=== PATIENT | male | born 1935 | race Hispanic/Latino ===

== ENCOUNTER 2019-06-06 01:45 | Emergency (ER) | payer MEDICARE, OTHER ==
--- NOTE | 2019-06-06 07:37 | CT ---
PRELIMINARY REPORT/[facility]/EMERGENCY AFTER HOURS PROCEDURE PROCEDURE INFORMATION: Exam: CT Head Without Contrast Exam date and time: 06/06/2019 2:31 AM Clinical history: 84 years old, male; Injury or trauma; Fall; Initial encounter; Blunt trauma (contus ions or hematomas); Patient HX: PT in from lampstand. Fell out of bed, onto a matress on the floor. E MS states pressure ulser on back and PT states hurts when urnating. Has had px stroke TECHNIQUE: Imaging protocol: Computed tomography of the head without contrast. COMPARISON: No relevant prior studies available. FINDINGS: Brain: No intracranial hemorrhage. Multifocal encephalomalacia/gliosis. Volume loss and chronic small vessel ischemic change. No brain edema. Ventricles: Normal. No ventriculomegaly. Bones/joints: Unremarkable. No acute fracture. Sinuses: Visualized sinuses are unremarkable. No fluid levels. Mastoid air cells: Visualized mastoid air cells are well aerated. Soft tissues: Unremarkable. IMPRESSION: No intracranial hemorrhage. Thank you for allowing us to participate in the care of your patient. Dictated and Authenticated by: Steven Delaney MD 06/06/2019 2:39 AM Central Time ([place] & [place]) FINAL REPORT I agree with the preliminary report provided. CODE QA POS:
--- NOTE | 2019-06-06 09:32 | RAD ---
AP VIEW PELVIS: INDICATIONS: Fall from standing with pain while urinating. COMPARISON: None. IMPRESSION: There is a mild amount of retained stool within the rectum and colon. There is diffuse osteopenia. No displaced pelvic fracture is evident. There is moderate degenerative change of both hips. There is e nthesopathic change of the ischial tuberosity and anterior pelvis. There is prominent degenerative ch nikolai of the lower lumbar spine. POS: BH
== END 2019-06-06 03:50 | disposition home or self-care (01) ==
LOC: ERS 01:45
DX: Z04.3 Encounter for examination and observation following other accident (principal); E11.621 Type 2 diabetes mellitus with foot ulcer; L89.612 Pressure ulcer of right heel, stage 2; I25.10 Atherosclerotic heart disease of native coronary artery without angina pectoris; I48.91 Unspecified atrial fibrillation; J44.9 Chronic obstructive pulmonary disease, unspecified; E11.9 Type 2 diabetes mellitus without complications; I49.9 Cardiac arrhythmia, unspecified; E78.5 Hyperlipidemia, unspecified; K21.9 Gastro-esophageal reflux disease without esophagitis; I10 Essential (primary) hypertension; F03.90 Unspecified dementia, unspecified severity, without behavioral disturbance, psychotic disturbance, mood disturbance, and anxiety; N40.0 Benign prostatic hyperplasia without lower urinary tract symptoms; Z86.73 Personal history of transient ischemic attack (TIA), and cerebral infarction without residual deficits; F32.9 Major depressive disorder, single episode, unspecified; F41.9 Anxiety disorder, unspecified; W06.XXXA Fall from bed, initial encounter
CPT/HCPCS: 70450; 72170

== ENCOUNTER 2019-09-25 21:09 | Emergency (ER) | payer MEDICARE, MEDICAID ==
[2019-09-25] MEDS ORDERED: Cefepime 2 GM VIAL ONE (21:52)
[2019-09-25] MEDS ORDERED: Sodium Chloride 0.9% 100 ML ONE (21:52)
--- NOTE | 2019-09-25 21:59 | RAD ---
RADIOGRAPH CHEST 1 VIEW: DATE: 09/25/2019 HISTORY: 84-year-old male with productive cough FINDINGS: The thoracic aorta is tortuous and ectatic. There is no evidence of airspace density, pulmonary edema , or pneumothorax. The lateral costophrenic angles are not effaced. There are diffuse chronic interstitial pulmonary densities. Left subclavian dual lead pacemaker. No interval change since 2016. IMPRESSION: 1) No acute pulmonary findings. 2) ectasia of thoracic aorta. 3) chronic interstitial lung disease. 4) pacemaker.
[2019-09-25 22:00] LABS: #Basophils 0.1 thou/uL (0.0-0.2); #Eosinphils 0.2 thou/uL (0.0-0.7); #Lymphocytes 1.9 thou/uL (1.20-3.40); #Neutrophils 9.4 thou/uL (1.40-6.50); %Basophils 0.6 % (0.0-1.0); %Eosinophils 1.7 % (0.0-10.0); %Lymphocytes 15.2 % (21.0-51.0); %Monocytes 8.1 % (0.0-10.0); %Neutrophils 74.5 % (42.0-75.0); Hemoglobin 12.3 g/dL (14.0-18.0); Mean Corpuscular Hemoglobin 30.2 pg (27.0-31.0); Mean Corpuscular Volume 91.5 fL (78.0-98.0); Mean Platelet Volume 7.2 fL (7.4-10.4); Platelet Count 310 thou/uL (130-400); RBC Distribution Width 13.3 % (11.5-14.5); Red Blood Cell (RBC) Count 4.07 mill/uL (4.70-6.10); White Blood Cell (WBC) Count 12.6 thou/uL (4.8-10.8)
[2019-09-25 22:23] LABS: ALT (SGPT) Less than 7 U/L (8-55); AST (SGOT) 9 U/L (5-34); Albumin 3.2 g/dL (3.4-4.8); Alkaline Phosphatase 83 U/L (40-110); Anion Gap 17 mmol/L (10-20); BUN (Urea Nitrogen) 34 mg/dL (8.4-25.7); Bilirubin, Total 0.5 mg/dL (0.2-1.2); Calc. Creatinine Clearance 0 mL/min (70-130); Calcium 8.6 mg/dL (7.8-10.44); Carbon Dioxide 24 mmol/L (23-31); Chloride 102 mmol/L (98-107); Estimated GFR-MDRD 39; Globulin 5.3 g/dL (2.4-3.5); Glucose 240 mg/dL (83-110); Potassium 5.2 mmol/L (3.5-5.1); Protein, Total 8.5 g/dL (5.8-8.1); Sodium 138 mmol/L (136-145)
[2019-09-26 00:12] LABS: Bacteria/HPF 4+ HPF (None Seen); Bilirubin Negative (Negative); Blood, Urine Trace (Negative); Clarity Turbid (Clear); Glucose, Urine (Dipstick) Normal (Negative); Leukocyte 250 Leu/uL (Negative); Nitrite Negative (Negative); Protein, Urine (Dipstick) 50 mg/dL (Neg-Trace); RBC/HPF 0-3 HPF (0-3); Squamous Epithelial None Seen HPF (0-3); Urobilinogen 3 mg/dL (Less than 2); WBC/HPF 21-50 HPF (0-3)
== END 2019-09-26 01:53 ==
LOC: ERS 21:09
DX: J18.9 Pneumonia, unspecified organism (principal); N39.0 Urinary tract infection, site not specified; F03.90 Unspecified dementia, unspecified severity, without behavioral disturbance, psychotic disturbance, mood disturbance, and anxiety; F41.9 Anxiety disorder, unspecified; I25.10 Atherosclerotic heart disease of native coronary artery without angina pectoris; E78.5 Hyperlipidemia, unspecified; I10 Essential (primary) hypertension; J45.909 Unspecified asthma, uncomplicated; E11.9 Type 2 diabetes mellitus without complications; J44.9 Chronic obstructive pulmonary disease, unspecified; I48.91 Unspecified atrial fibrillation; Z79.899 Other long term (current) drug therapy; Z86.73 Personal history of transient ischemic attack (TIA), and cerebral infarction without residual deficits
CPT/HCPCS: 36415; 51701; 71045; 80053; 81003; 81015; 83605; 85025; 87040; 87086; 87804; 93005; 96365; 96367; J0692; J1956; J3490

== ENCOUNTER 2020-07-27 19:02 | Inpatient (IN) | payer MEDICARE, MEDICAID ==
[2020-07-27 20:01] LABS: #Lymphocytes 1.3 thou/uL (1.20-3.40); #Monocytes 0.7 thou/uL (0.11-0.59); #Neutrophils 8.6 thou/uL (1.40-6.50); %Basophils 0.2 % (0.0-1.0); %Eosinophils 0.1 % (0.0-10.0); %Lymphocytes 12.6 % (21.0-51.0); %Monocytes 6.7 % (0.0-10.0); %Neutrophils 80.3 % (42.0-75.0); Hemoglobin 13.9 g/dL (14.0-18.0); Mean Corpuscular HGB CONC 32.8 g/dL (32.0-36.0); Mean Corpuscular Hemoglobin 29.9 pg (27.0-31.0); Mean Corpuscular Volume 91.1 fL (78.0-98.0); Mean Platelet Volume 8.1 fL (7.4-10.4); Platelet Count 255 thou/uL (130-400); RBC Distribution Width 14.6 % (11.5-14.5); Red Blood Cell (RBC) Count 4.64 mill/uL (4.70-6.10); White Blood Cell (WBC) Count 10.7 thou/uL (4.8-10.8)
[2020-07-27] MEDS ORDERED: cefTRIAXone\\ROCEPHIN 1 GM VIAL ONE ×2 (20:04→20:06)
[2020-07-27 20:11] LABS: INR-International Normal Ratio 1.2; PTT 48.2 sec (22.9-36.1); Prothrombin Time 15.3 sec (12.0-14.7)
--- NOTE | 2020-07-27 20:21 | RAD ---
RADIOGRAPH CHEST 1 VIEW: DATE: 07/27/2020 TIME: 8:05 PM HISTORY: 85-year-old male with dyspnea COMPARISON: 09/25/2019 FINDINGS: Bilateral diffuse moderate to severe chronic interstitial infiltrates. No definite new consolidation. Left subclavian pacemaker. No pneumothorax. No definite interval change. IMPRESSION: Moderate to severe chronic interstitial lung disease: Pulmonary fibrosis
[2020-07-27 20:24] LABS: ALT (SGPT) Less than 7 U/L (8-55); AST (SGOT) 16 U/L (5-34); Albumin 2.9 g/dL (3.4-4.8); Alkaline Phosphatase 80 U/L (40-110); Anion Gap 20 mmol/L (10-20); BUN (Urea Nitrogen) 51 mg/dL (8.4-25.7); Calc. Creatinine Clearance 0 mL/min (70-130); Calcium 8.1 mg/dL (7.8-10.44); Carbon Dioxide 18 mmol/L (23-31); Chloride 108 mmol/L (98-107); Estimated GFR-MDRD 41; Globulin 4.7 g/dL (2.4-3.5); Glucose 164 mg/dL (83-110); Potassium 4.3 mmol/L (3.5-5.1); Protein, Total 7.6 g/dL (5.8-8.1); Sodium 142 mmol/L (136-145)
[2020-07-27] MEDS ORDERED: Azithromycin 500 MG VIAL ONE (20:35)
[2020-07-27 21:17] LABS: Bacteria/HPF 4+ HPF (None Seen); Bilirubin Negative (Negative); Blood, Urine 2+ (Negative); Clarity Extra Turbid (Clear); Glucose, Urine (Dipstick) Normal (Negative); Ketone, Urine Trace mg/dL (Negative); Leukocyte 250 Leu/uL (Negative); Nitrite Negative (Negative); Protein, Urine (Dipstick) 300 mg/dL (Neg-Trace); RBC/HPF 21-50 HPF (0-3); Specific Gravity, Urine 1.021 (1.002-1.036); Squamous Epithelial 0-3 HPF (0-3); Urobilinogen 6 mg/dL (Less than 2); WBC/HPF Greater than 50 HPF (0-3)
[2020-07-27] MEDS ORDERED: Aspirin Chewable 81 MG TAB ONE (21:47)
--- NOTE | 2020-07-27 21:49 | PDOC.HHP ---
Hospitalist HPI - History of Present Illness Hypoxemia History of Present Illness: PCP: Dr. Wren The majority of the H&P was taken from the ER notes and group home records due to the patient's history of dementia. The patient is an 85-year-old male with a past medical history significant for COPD/asthma, pulmonary fibrosis, CAD, atrial fibrillation (on Eliquis), DM 2, CVA with left-sided deficits that presents to the emergency department via EMS from [facility] for the above complaint. Apparently, the patient was recently diagnosed with pneumonia 2 days ago. Today, he was agitated and refusing his medications. There was documentation that he was hypoxic and tachypneic. The nurse practitioner that was treating him wanted him to come to the ER for further evaluation. EMS was called. Upon arrival, the patient was found to have stable vital signs with SPO2 97% on room air. The patient was taken to the emergency department for further evaluation. ED Course: VITAL SIGNS Raven Jul 27, 2020 19:14 KAILASH Oconnor Amanda BP: 150/77, MAP: 101, Pulse: 87, Resp: 24, Temp: 97.7 (Oral), Pain: 0, O2 sat: 93 on (Room Air), Time: 07/27/2020 19:14. VITAL SIGNS Raven Jul 27, 2020 20:16 KAILASH Oconnor Amanda BP: 160/101, Pulse: 80, Resp: 25, Pain: 2, O2 sat: 96 on (3L Oxygen), Time: 07/27/2020 20:16. VITAL SIGNS Raven Jul 27, 2020 21:00 KAILASH Oconnor Amanda BP: 110/55, MAP: 73, Pulse: 80, Resp: 26, Pain: 2, O2 sat: 97 on (3L Oxygen), Time: 07/27/2020 21:00. Medications: aspirin oral 325 mg Oral Given 21:34 07/27/2020 Normal Saline 1 L IV Fluid Infusion Given 21:34 07/27/2020 azithromycin intravenous 500 mg IV Piggy Back Given 21:03 07/27/2020 cefTRIAXone injection 1 g IV Piggy Back Given 20:10 07/27/2020 Normal Saline 1 L IV Fluid Infusion Given 19:35 07/27/2020 Hospitalist ROS - Review of Systems ROS unobtainable: due to mental status All other systems reviewed; all pertinent +/- noted in HPI/Subj - Medication Medications: 1. Simvastatin 20 mg p.o. nightly 2. Digoxin 0.125 mg p.o. every morning 3. Multaq 4 mg p.o. twice daily 4. Zetia 10 mg p.o. daily 5. Pepcid 20 mg p.o. every morning 6. Lasix 20 mg p.o. daily 7. Hydralazine 25 mg p.o. 3 times daily 8. Namenda 10 mg p.o. twice daily 9. Metoprolol tartrate 50 mg p.o. twice daily 10. Remeron 30 mg p.o. nightly 11. Florastor 250 mg p.o. daily 12. Depakene to 50 mg/5 ml, 10 mils p.o. twice daily 13. Eliquis 2.5 mg p.o. twice daily Allergies: No known drug allergies Hospitalist History - Past Medical History Source: RN notes reviewed, group home record Cardiac: reports: AFIB (On Eliquis), CAD, HTN, Hyperlipidemia Pulmonary: reports: asthma, COPD, lung disease (Pulmonary fibrosis) DEICER FINISHER: reports: CVA (Left-sided deficits, dysphagia), Dementia, Seizure Gastrointestinal: reports: GERD Psych: reports: Depression Renal/: reports: Benign prostatic enlarg. Endocrine: reports: Diabetes (Type II) - Past Surgical History Past Surgical History: reports: CABG (CAD x1, pacemaker), Other (PEG tube removal) - Family History Other Family History: Unable to assess at bedside - Social History Smoking Status: Unknown if ever smoked Alcohol: reports: None Drugs: reports: none Living Situation: Shelter Activity level: bed bound - Exam General Appearance: NAD, awake alert General - other findings: Uncomfortable appearing Eye: PERRL, anicteric sclera ENT: normocephalic atraumatic, dry oral mucosa Neck: supple, symmetric Heart: RRR, no gallops, no rubs, normal peripheral pulses, II/IV Respiratory: no wheezes, rales, rhonchi, tachypneic (Mild) Gastrointestinal: soft, non-tender, non-distended, normal bowel sounds, no g uarding, no rigidity Extremities: no edema Skin - other findings: Stage III sacrum, right heel eschar Neurological: no new deficit Neurological - other findings: History left hemiparesis Musculoskeletal: generalized weakness Psychiatric: negative: A&O x 3 (Alert, agitated, not following commands at this time) Hospitalist Results - Labs Result Diagrams: 07/27/20 19:39 07/27/20 19:39 Lab results: WBC 10.7 thou/uL (4.8-10.8) 07/27/20 19:39 Hgb 13.9 g/dL (14.0-18.0) L 07/27/20 19:39 Hct 42.2 % (42.0-52.0) 07/27/20 19:39 MCV 91.1 fL (78.0-98.0) 07/27/20 19:39 Plt Count 255 thou/uL (130-400) 07/27/20 19:39 Neutrophils % 80.3 % (42.0-75.0) H 07/27/20 19:39 ESR Westergren 92 mm/hr (Less than 20) H 07/27/20 19:39 Sodium 142 mmol/L (136-145) 07/27/20 19:39 Potassium 4.3 mmol/L (3.5-5.1) 07/27/20 19:39 Chloride 108 mmol/L (98-107) H 07/27/20 19:39 Carbon Dioxide 18 mmol/L (23-31) L 07/27/20 19:39 BUN 51 mg/dL (8.4-25.7) H 07/27/20 19:39 Creatinine 1.63 mg/dL (0.7-1.3) H 07/27/20 19:39 Glucose 164 mg/dL (83-110) H 07/27/20 19:39 Lactic Acid 2.2 mmol/L (0.5-2.2) 07/27/20 19:39 Calcium 8.1 mg/dL (7.8-10.44) 07/27/20 19:39 Total Bilirubin 1.0 mg/dL (0.2-1.2) 07/27/20 19:39 AST 16 U/L (5-34) 07/27/20 19:39 ALT Less than 7 U/L (8-55) L 07/27/20 19:39 Alkaline Phosphatase 80 U/L (40-110) 07/27/20 19:39 CK-MB (CK-2) 4.0 ng/mL (0-6.6) 07/27/20 19:39 Troponin I 0.123 ng/mL (< 0.028) H 07/27/20 19:39 C-Reactive Protein 21.80 mg/dL (= or < 0.5) H 07/27/20 19:39 B-Natriuretic Peptide 65.0 pg/mL (0-100) 07/27/20 19:39 Serum Total Protein 7.6 g/dL (5.8-8.1) 07/27/20 19:39 Albumin 2.9 g/dL (3.4-4.8) L 07/27/20 19:39 Urine Ketones Trace mg/dL (Negative) A 07/27/20 20:55 Urine Blood 2+ (Negative) A 07/27/20 20:55 Urine Nitrite Negative (Negative) 07/27/20 20:55 Ur Leukocyte Esterase 250 Al/uL (Negative) A 07/27/20 20:55 Urine RBC 21-50 HPF (0-3) A 07/27/20 20:55 Urine WBC Greater than 50 HPF (0-3) A 07/27/20 20:55 Ur Squamous Epith Cells 0-3 HPF (0-3) 07/27/20 20:55 Urine Bacteria 4+ HPF (None Seen) A 07/27/20 20:55 - EKG Interpretation EK lead EKG interpreted by Emergency Department Physician at time of study, Rate of 80 ventricular paced rhythm with left axis deviation. Wide QRS complex tremor artifact - Radiology Interpretation Chest x-ray Status: report reviewed by me Additional Comment: IMPRESSION: Moderate to severe chronic interstitial lung disease: Pulmonary fibrosis Hospitalist H&P A/P - Problem (1) Pneumonia Code(s): J18.9 - PNEUMONIA, UNSPECIFIED ORGANISM Status: Acute (2) Dyspnea Code(s): R06.00 - DYSPNEA, UNSPECIFIED Status: Acute (3) Elevated troponin Code(s): R77.8 - OTHER SPECIFIED ABNORMALITIES OF PLASMA PROTEINS Status: Acute (4) UTI (urinary tract infection) Status: Acute (5) Pulmonary fibrosis Code(s): J84.10 - PULMONARY FIBROSIS, UNSPECIFIED Status: Chronic (6) A-fib Code(s): I48.91 - UNSPECIFIED ATRIAL FIBRILLATION Status: Chronic (7) CAD (coronary artery disease) Code(s): I25.10 - ATHSCL HEART DISEASE OF [place] CORONARY ARTERY W/O ANG PCTRS Status: Chronic (8) Hypertension Code(s): I10 - ESSENTIAL (PRIMARY) HYPERTENSION Status: Chronic (9) DM2 (diabetes mellitus, type 2) Status: Chronic (10) HLD (hyperlipidemia) Code(s): E78.5 - HYPERLIPIDEMIA, UNSPECIFIED Status: Chronic (11) GERD (gastroesophageal reflux disease) Code(s): K21.9 - GASTRO-ESOPHAGEAL REFLUX DISEASE WITHOUT ESOPHAGITIS Status: Chronic (12) Dementia Code(s): F03.90 - UNSPECIFIED DEMENTIA WITHOUT BEHAVIORAL DISTURBANCE Status: Chronic (13) Seizure disorder Code(s): G40.909 - EPILEPSY, UNSP, NOT INTRACTABLE, WITHOUT STATUS EPILEPTICUS Status: Chronic (14) CKD (chronic kidney disease), stage III Code(s): N18.30 - CHRONIC KIDNEY DISEASE, STAGE 3 UNSPECIFIED Status: Chronic (15) Decubitus ulcer of sacral region, stage 3 Code(s): L89.153 - PRESSURE ULCER OF [place], STAGE 3 Status: Chronic - Plan Plan: 85/M with PMH recent DX PNA presents for dyspnea and agitation. Admit to telemetry floor, inpatient status. Expected length of stay greater than 2 midnights. Presented hypertensive, tachypneic, hypoxic, NL HR, afebrile. EKG V paced CXR pulmonary fibrosis Troponin 0.123, CK-MB 4.0, BNP 65 LA 2.2, WBC 10.7, CRP 21.8, ESR 92 UA 4+ bacteria, WBC greater than 50, 250 leukocyte Esterase BUN 51, creatinine 1.63 Glucose 164 #Pneumonia Curb 65 score 3, severe risk Continue azithromycin and Rocephin IVPB. Supplemental oxygen SPO2 greater than 92 Blood/urine CX pending Covid screen pending Isolation precautions. #Dyspnea Likely related to problem #1 #Elevated troponin Likely demand ischemia Initial 0.123, was 0.55 in 2017 Trend troponins, check FLP, TSH, mag Order echocardiogram Continue aspirin #UTI Continue Rocephin Urine culture pending #Pulmonary fibrosis Chronic. #Atrial fibrillation Paroxysmal. Rate controlled. Restart home dose digoxin, Multaq, metoprolol. Check digoxin level. Restart home dose Eliquis when reconciled by nursing. #CAD Restart home dose metoprolol. #Hypertension Presented hypertensive. Restart home dose metoprolol, hydralazine. #DM2 Presented BG 164. Takes Levemir 5 units SC daily. Will start moderate ISS. Accu-Cheks every 6 hours. #HLD Restart home dose of Zetia and simvastatin. Check FLP. #GERD Restart home dose Pepcid. #Dementia Presented agitated, likely multifactorial. Restart home dose Namenda. #Seizure disorder Restart home dose Depakene. #CKD 3 Appears stable. #Decubitus ulcer of sacral region stage III Consult wound care. No pharmacological DVT prophylaxis. SCDs for DVT prophylaxis. Pepcid for GI prophylaxis. Full code. Ariana Moyer, daughter at [phone]. Discussed the case with Dr. Marshal Barrios.
[2020-07-27] MEDS ORDERED: Nitroglycerin 0.4 MG TAB (25 Tab Bottle) SL PRN (22:07)
[2020-07-27] MEDS ORDERED: Dextrose 50% Abboject 50 ML SYRINGE SLOW IVP PRN (22:10)
[2020-07-27] MEDS ORDERED: HumaLOG 300 UNITS/3 ML VIAL SC PRN ×2 (22:10)
[2020-07-27] MEDS ORDERED: Dextrose 5% in Water 1,000 ML IV PRN (22:10)
[2020-07-27 22:50] LABS: Troponin I 0.082 ng/mL (< 0.028)
[2020-07-27 22:52] LABS: Lactic Acid 1.3 mmol/L (0.5-2.2)
[2020-07-27 23:02] LABS: Digoxin 0.65 ng/mL (0.8-2.0)
[2020-07-27] MEDS ORDERED: Senokot S 8.6-50 MG TAB PO PRN (23:18)
[2020-07-27] MEDS ORDERED: Ondansetron ODT 4 MG TAB PO PRN (23:18)
[2020-07-27] MEDS ORDERED: Calcium Carbonate 500 MG ChewTAB PO PRN (23:18)
[2020-07-27] MEDS ORDERED: Guaifenesin DM 100-10/5 ML UDCUP PO PRN (23:18)
[2020-07-27] MEDS ORDERED: Acetaminophen 650 MG Suppository PR PRN (23:18)
[2020-07-27] MEDS ORDERED: Ondansetron PF 4 MG/2 ML Vial IVP PRN (23:18)
[2020-07-28 01:29] LABS: SARS-CoV-2 NAA Rapid Test Not Detected (NotDetected)
[2020-07-28 05:02] LABS: #Lymphocytes 1.1 thou/uL (1.20-3.40); #Monocytes 0.6 thou/uL (0.11-0.59); #Neutrophils 5.8 thou/uL (1.40-6.50); %Basophils 0.3 % (0.0-1.0); %Eosinophils 0.5 % (0.0-10.0); %Neutrophils 77.1 % (42.0-75.0); Hemoglobin 11.6 g/dL (14.0-18.0); Mean Corpuscular HGB CONC 31.7 g/dL (32.0-36.0); Mean Corpuscular Hemoglobin 29.2 pg (27.0-31.0); Mean Corpuscular Volume 91.9 fL (78.0-98.0); Mean Platelet Volume 8.4 fL (7.4-10.4); Platelet Count 217 thou/uL (130-400); RBC Distribution Width 14.3 % (11.5-14.5); Red Blood Cell (RBC) Count 3.96 mill/uL (4.70-6.10); White Blood Cell (WBC) Count 7.5 thou/uL (4.8-10.8)
[2020-07-28 05:21] LABS: Anion Gap 15 mmol/L (10-20); BUN (Urea Nitrogen) 47 mg/dL (8.4-25.7); Calc. Creatinine Clearance 0 mL/min (70-130); Calcium 7.9 mg/dL (7.8-10.44); Carbon Dioxide 18 mmol/L (23-31); Cardiac Risk 7.3 (Less than 4.5); Chloride 114 mmol/L (98-107); Cholesterol 102 mg/dl (< 200 Desired); Estimated GFR-MDRD 54; Glucose 113 mg/dL (83-110); HDL Cholesterol 14 mg/dL (>60 Neg Risk); LDL Cholesterol, Calculated 37 mg/dL; Potassium 3.5 mmol/L (3.5-5.1); Sodium 143 mmol/L (136-145); Triglycerides 253 mg/dL (Less than 150)
--- NOTE | 2020-07-28 16:51 | PDOC.HOSPP ---
- Subjective Encounter Date: 07/28/20 Subjective: The patient is confused. - Objective Vital Signs & Weight: Vital Signs (12 hours) Temp Pulse Resp BP Pulse Ox 07/28/20 14:10 97.8 F 80 16 184/83 H 98 Result Diagrams: 07/28/20 04:17 07/28/20 04:17 Additional Labs: Accuchecks 07/28/20 06:33 POC Glucose 102 H - Exam ENT: normocephalic atraumatic Neck: supple, no JVD Heart: RRR Respiratory: normal chest expansion, no tachypnea, rhonchi Gastrointestinal: soft, non-tender Extremities: no cyanosis, no clubbing Hosp A/P (1) UTI (urinary tract infection) Status: Acute (2) A-fib Code(s): I48.91 - UNSPECIFIED ATRIAL FIBRILLATION Status: Chronic (3) CAD (coronary artery disease) Code(s): I25.10 - ATHSCL HEART DISEASE OF [place] CORONARY ARTERY W/O ANG PCTRS Status: Chronic (4) DM2 (diabetes mellitus, type 2) Status: Chronic (5) Alzheimer's dementia Code(s): G30.9 - ALZHEIMER'S DISEASE, UNSPECIFIED Status: Chronic Qualifiers: (6) Acute kidney injury superimposed on chronic kidney disease Code(s): N17.9 - ACUTE KIDNEY FAILURE, UNSPECIFIED; N18.9 - CHRONIC KIDNEY DISEASE, UNSPECIFIED Status: Acute (7) Sacral decubitus ulcer Code(s): L89.159 - PRESSURE ULCER OF [place], UNSPECIFIED STAGE Status: Acute (8) Physical deconditioning Code(s): R53.81 - OTHER MALAISE Status: Chronic - Plan The patient is confused due to underlying dementia. He does have history of swallowing difficulty. We will keep him n.p.o. until evaluated by speech therapy. Cultures of the urine on blood showing growth of gram-negative rods. Final identification and sensitivity data are pending. Continue IV ceftriaxone. Wound care consult for his sacral decubitus ulcer. PT and OT evaluation. Creatinine level improved after hydration.
[2020-07-28] MEDS: Digoxin 0.125 MG TAB PO SCH (17:02)
[2020-07-28] MEDS: Aspirin 81 mg Enteric Coated Tablet PO SCH (17:02)
[2020-07-28] MEDS: Dronedarone HCl 400 MG TAB PO SCH ×2 (17:02→22:57)
[2020-07-28] MEDS: hydrALAZINE 25 MG TAB PO SCH ×2 (17:03→22:58)
[2020-07-28] MEDS: Furosemide 20 MG TAB PO SCH (17:03)
[2020-07-28] MEDS: Famotidine 20 MG TAB PO SCH (17:03)
[2020-07-28] MEDS: Ezetimibe 10 MG TAB PO SCH (17:03)
[2020-07-28] MEDS: Valproic Acid 250 MG CAP PO SCH ×2 (17:04→22:57)
[2020-07-28] MEDS: Saccharomyces boulardii 250 MG CAP PO SCH (17:04)
[2020-07-28] MEDS: Metoprolol Tartrate 50 MG TAB PO SCH ×2 (17:04→22:57)
[2020-07-28 17:56] VITALS: BMI 19.8
[2020-07-28] MEDS: cefTRIAXone\\ROCEPHIN 1 GM in Sodium Chloride 0.9% 100 ML IVPB SCH (20:55)
[2020-07-28] MEDS ORDERED: Azithromycin 500 MG in Sodium Chloride 0.9% 250 ML 250 ML IVPB SCH (21:00)
[2020-07-28] MEDS ORDERED: traZODone HCl 50 MG TAB PO SCH (22:45)
[2020-07-28] MEDS: Atorvastatin Calcium 10 MG TAB PO SCH (22:57)
[2020-07-28] MEDS: Mirtazapine 30 MG TAB PO SCH (22:57)
[2020-07-28] MEDS: Sodium Chloride 0.9% 1,000 ML IV SCH (22:58)
[2020-07-28] MEDS: Melatonin 3 MG TAB PO PRN (22:58)
--- NOTE | 2020-07-29 08:14 | PDOC.HOSPP ---
- Subjective Encounter Date: 07/29/20 (f/u uti) Encounter Time: 08:12 Subjective: Pt on HD 3, admitted for UTI, pneumonia, change in behavior with underlying hx of dementia, a fib and stroke. RN notes concern of aspiration with taking PO - noted in diet with aspiration risk. This morning - pt awakens and states in slowed speech he wants to sleep. no overnight events. - Objective Vital Signs & Weight: Vital Signs (12 hours) Temp Pulse Resp BP Pulse Ox 07/29/20 04:00 96.6 F L 80 16 154/72 H 100 07/29/20 00:00 98.1 F 80 18 159/77 H 98 07/28/20 22:58 80 Weight Weight 142 lb I&O: 07/28/20 07/29/20 07/30/20 06:59 06:59 06:59 Intake Total 300 1080 Output Total 225 525 Balance 75 555 Result Diagrams: 07/29/20 13:17 07/29/20 13:17 Additional Labs: Accuchecks 07/29/20 07/28/20 07/28/20 06:36 23:15 17:54 POC Glucose 133 H 197 H 114 H Hospitalist ROS - Medication Medications: Active Medications Generic Name Dose Route Start Last Admin Trade Name Freq PRN Reason Stop Dose Admin Aspirin 81 mg 07/28/20 09:00 07/28/20 17:02 Aspirin 81 Mg Enteric Coated Tablet PO Not Given DAILY HUGH Atorvastatin Calcium 10 mg 07/28/20 21:00 07/28/20 22:57 Atorvastatin Calcium 10 Mg Tab PO 10 mg HS HUGH Administration Digoxin 0.125 mg 07/28/20 09:00 07/28/20 17:02 Digoxin 0.125 Mg Tab PO Not Given QAM HUGH Dronedarone 400 mg 07/28/20 09:00 07/28/20 22:57 Dronedarone Hcl 400 Mg Tab PO 400 mg BID HUGH Administration Ezetimibe 10 mg 07/28/20 09:00 07/28/20 17:03 Ezetimibe 10 Mg Tab PO Not Given DAILY HUGH Famotidine 20 mg 07/28/20 09:00 07/28/20 17:03 Famotidine 20 Mg Tab PO Not Given 0900 HUGH Furosemide 20 mg 07/28/20 09:00 07/28/20 17:03 Furosemide 20 Mg Tab PO Not Given DAILY HUGH Hydralazine HCl 25 mg 07/28/20 09:00 07/28/20 22:58 Hydralazine 25 Mg Tab PO 25 mg TID HUGH Administration Ceftriaxone Sodium 1 gm/ 100 mls @ 200 mls/hr 07/28/20 20:00 07/28/20 20:55 Sodium Chloride IVPB 100 mls Q24HR HUGH Administration Sodium Chloride 1,000 mls @ 75 mls/hr 07/28/20 17:15 07/28/20 22:58 Normal Saline 0.9% IV 1,000 mls .[id number] HUGH Administration Melatonin 3 mg 07/28/20 22:40 07/28/20 22:58 Melatonin 3 Mg Tab PO 3 mg HSPRN PRN Administration Insomnia Memantine 5 mg 07/28/20 09:00 07/28/20 22:58 Memantine Hcl 5 Mg Tab PO 5 mg BID HUGH Administration Metoprolol Tartrate 50 mg 07/28/20 09:00 07/28/20 22:57 Metoprolol Tartrate 50 Mg Tab PO 50 mg BID HUGH Administration Mirtazapine 30 mg 07/28/20 21:00 07/28/20 22:57 Mirtazapine 30 Mg Tab PO 30 mg HS HUGH Administration Saccharomyces Boulardii 250 mg 07/28/20 09:00 07/28/20 17:04 Saccharomyces Boulardii 250 Mg Cap PO Not Given DAILY HUGH Valproic Acid 500 mg 07/28/20 09:00 07/28/20 22:57 Valproic Acid 250 Mg Cap PO 500 mg BID HUGH Administration - Exam General Appearance: NAD General - other findings: cachectic appearing Heart: RRR, no murmur Heart - other findings: pacemaker left side of chest Respiratory: CTAB, no wheezes Gastrointestinal: soft, non-tender, non-distended, normal bowel sounds Extremities: no edema Skin - other findings: stage 3 ulcers left heel, buttock, unstageable right foot Neurological - other findings: no focal deficits, but unable to adequately assess Psychiatric - other findings: unable to adequately assess Hosp A/P (1) Pneumonia Code(s): J18.9 - PNEUMONIA, UNSPECIFIED ORGANISM Status: Suspected Qualifiers: Pneumonia type: due to unspecified organism (2) UTI (urinary tract infection) Status: Acute Qualifiers: Urinary tract infection type: acute cystitis (3) A-fib Code(s): I48.91 - UNSPECIFIED ATRIAL FIBRILLATION Status: Chronic Qualifiers: Atrial fibrillation type: unspecified Qualified Code(s): I48.91 - Unspecified atrial fibrillation (4) CAD (coronary artery disease) Code(s): I25.10 - ATHSCL HEART DISEASE OF [place] CORONARY ARTERY W/O ANG PCTRS Status: Chronic (5) CKD (chronic kidney disease), stage III Code(s): N18.30 - CHRONIC KIDNEY DISEASE, STAGE 3 UNSPECIFIED Status: Chronic (6) DM2 (diabetes mellitus, type 2) Status: Chronic Qualifiers: Chronic kidney disease stage 3 subtype: stage 3a (GFR 45-59) (7) Decubitus ulcer of sacral region, stage 3 Code(s): L89.153 - PRESSURE ULCER OF [place], STAGE 3 Status: Chronic (8) Hypertension Code(s): I10 - ESSENTIAL (PRIMARY) HYPERTENSION Status: Chronic (9) Pulmonary fibrosis Code(s): J84.10 - PULMONARY FIBROSIS, UNSPECIFIED Status: Chronic (10) Alzheimer's dementia Code(s): G30.9 - ALZHEIMER'S DISEASE, UNSPECIFIED Status: Chronic Qualifiers: (11) Protein-calorie malnutrition, moderate Code(s): E44.0 - MODERATE PROTEIN-CALORIE MALNUTRITION Status: Chronic (12) Swallowing dysfunction Code(s): R13.10 - DYSPHAGIA, UNSPECIFIED Status: Chronic - Plan UTI - MDR E Coli - continue ceftriaxone Possible pneumonia - chronic moderate to severe pulm fibrosis - continue Rocephin A fib - rate controlled - continue home meds - do not see home eliquis ordered - will resume that today for stroke risk reduction Sacral/foot ulcers - wound care consult DM - controlled, no indication for home levemir Aspiration risk - continue current diet order Overall difficult health picture - Pall care consult placed yesterday to assist with goals of care. I think pt/family will also benefit from discussion around code status. Cotninue home meds - Requested RN re-reconcile the meds as there are some on the [facility] list that are not in our system - such as eliquis and levemir. DVT prophy - resuming eliquis GI prophy - not indicated, on famotidine/home med Code status - full, confirmed on intermediate list reivewed plan of care with RN, no questions or further needs at end of eval. Pt at high risk of recurrent admissions. Addendum - echo reviewed, ordered because of indeterminant troponin and EF 40- 45% with grade 3 diastolic dysfunction. Reviewed prior echo report from 2016 and EF was estimated 35-40% with technically difficult study. No change to plan of care.
[2020-07-29] MEDS ORDERED: traZODone HCl 50 MG TAB PO SCH (09:00)
[2020-07-29] MEDS: Sodium Chloride 0.9% 1,000 ML IV SCH (09:04)
[2020-07-29] MEDS: hydrALAZINE 25 MG TAB PO SCH ×3 (09:06→21:25)
[2020-07-29] MEDS: Saccharomyces boulardii 250 MG CAP PO SCH (09:06)
[2020-07-29] MEDS: Ezetimibe 10 MG TAB PO SCH (09:06)
[2020-07-29] MEDS: Famotidine 20 MG TAB PO SCH (09:06)
[2020-07-29] MEDS: Furosemide 20 MG TAB PO SCH (09:06)
[2020-07-29] MEDS: Aspirin 81 mg Enteric Coated Tablet PO SCH ×2 (09:06→09:12)
[2020-07-29] MEDS: Digoxin 0.125 MG TAB PO SCH (09:06)
[2020-07-29] MEDS: Valproic Acid 250 MG CAP PO SCH ×2 (09:07→11:43)
[2020-07-29] MEDS: Metoprolol Tartrate 50 MG TAB PO SCH ×2 (09:07→21:24)
[2020-07-29] MEDS: Dronedarone HCl 400 MG TAB PO SCH ×2 (09:07→22:28)
[2020-07-29] MEDS: Acetaminophen 325 MG TAB PO PRN ×2 (11:58→17:12)
[2020-07-29] MEDS: Aspirin Chewable 81 MG TAB PO SCH (11:59)
[2020-07-29] MEDS: Valproate Sodium 250 mg/5 ml UD Cup PO SCH ×2 (11:59→22:28)
[2020-07-29] MEDS: Apixaban 2.5 MG TAB PO SCH ×2 (11:59→21:25)
[2020-07-29 13:34] LABS: #Eosinphils 0.2 thou/uL (0.0-0.7); #Lymphocytes 1.4 thou/uL (1.20-3.40); #Monocytes 0.7 thou/uL (0.11-0.59); #Neutrophils 5.5 thou/uL (1.40-6.50); %Basophils 0.1 % (0.0-1.0); %Eosinophils 2.3 % (0.0-10.0); %Lymphocytes 18.2 % (21.0-51.0); %Monocytes 9.4 % (0.0-10.0); Mean Corpuscular HGB CONC 31.3 g/dL (32.0-36.0); Mean Corpuscular Volume 92.7 fL (78.0-98.0); Mean Platelet Volume 7.7 fL (7.4-10.4); Platelet Count 262 thou/uL (130-400); RBC Distribution Width 14.5 % (11.5-14.5); Red Blood Cell (RBC) Count 4.14 mill/uL (4.70-6.10); White Blood Cell (WBC) Count 7.9 thou/uL (4.8-10.8)
[2020-07-29 13:50] LABS: Anion Gap 14 mmol/L (10-20); BUN (Urea Nitrogen) 28 mg/dL (8.4-25.7); Calc. Creatinine Clearance 60 mL/min (70-130); Calcium 7.9 mg/dL (7.8-10.44); Carbon Dioxide 19 mmol/L (23-31); Chloride 116 mmol/L (98-107); Estimated GFR-MDRD 88; Glucose 153 mg/dL (83-110); Potassium 3.5 mmol/L (3.5-5.1); Sodium 145 mmol/L (136-145)
--- NOTE | 2020-07-29 15:35 | EKG ---
Test Reason : Blood Pressure : / mmHG Vent. Rate : 080 BPM Atrial Rate : 234 BPM P-R Int : 000 ms QRS Dur : 204 ms QT Int : 480 ms P-R-T Axes : 000 -51 134 degrees QTc Int : 553 ms Ventricular-paced rhythm Abnormal ECG Confirmed by MIKAEL PICKENS, ZUHAIR Ramirez ([id number]), society editor LIDA CASTLE ([id number]) on 07/29/2020 3:34:59 PM Referred By: Confirmed By:ZUHAIR YOUSSEF MD
[2020-07-29] MEDS ORDERED: Valproic Acid 250 MG CAP PO SCH (21:00)
[2020-07-29] MEDS: traZODone HCl 50 MG TAB PO SCH (21:24)
[2020-07-29] MEDS: cefTRIAXone\\ROCEPHIN 1 GM in Sodium Chloride 0.9% 100 ML IVPB SCH (21:24)
[2020-07-29] MEDS: Melatonin 3 MG TAB PO PRN (21:24)
[2020-07-29] MEDS: Atorvastatin Calcium 10 MG TAB PO SCH (21:25)
[2020-07-29] MEDS: Mirtazapine 30 MG TAB PO SCH (22:11)
[2020-07-30 04:19] LABS: #Eosinphils 0.2 thou/uL (0.0-0.7); #Lymphocytes 1.1 thou/uL (1.20-3.40); #Monocytes 0.7 thou/uL (0.11-0.59); #Neutrophils 6.6 thou/uL (1.40-6.50); %Basophils 0.2 % (0.0-1.0); %Eosinophils 2.2 % (0.0-10.0); %Lymphocytes 12.7 % (21.0-51.0); %Monocytes 8.4 % (0.0-10.0); %Neutrophils 76.6 % (42.0-75.0); Hemoglobin 12.5 g/dL (14.0-18.0); Mean Corpuscular HGB CONC 31.9 g/dL (32.0-36.0); Mean Corpuscular Hemoglobin 30.1 pg (27.0-31.0); Mean Corpuscular Volume 94.4 fL (78.0-98.0); Mean Platelet Volume 7.5 fL (7.4-10.4); Platelet Count 283 thou/uL (130-400); RBC Distribution Width 14.6 % (11.5-14.5); Red Blood Cell (RBC) Count 4.15 mill/uL (4.70-6.10); White Blood Cell (WBC) Count 8.6 thou/uL (4.8-10.8)
[2020-07-30 04:37] LABS: Anion Gap 14 mmol/L (10-20); BUN (Urea Nitrogen) 24 mg/dL (8.4-25.7); Calc. Creatinine Clearance 63 mL/min (70-130); Carbon Dioxide 18 mmol/L (23-31); Chloride 115 mmol/L (98-107); Estimated GFR-MDRD Greater than 90; Glucose 114 mg/dL (83-110); Potassium 3.5 mmol/L (3.5-5.1); Sodium 143 mmol/L (136-145)
[2020-07-30] MEDS: Saccharomyces boulardii 250 MG CAP PO SCH (08:58)
[2020-07-30] MEDS: Aspirin Chewable 81 MG TAB PO SCH (08:58)
[2020-07-30] MEDS: Digoxin 0.125 MG TAB PO SCH (08:58)
[2020-07-30] MEDS: Metoprolol Tartrate 50 MG TAB PO SCH ×2 (08:59→21:02)
[2020-07-30] MEDS: Furosemide 20 MG TAB PO SCH (08:59)
[2020-07-30] MEDS: Acetaminophen 325 MG TAB PO PRN (08:59)
[2020-07-30] MEDS: hydrALAZINE 25 MG TAB PO SCH ×3 (08:59→21:02)
[2020-07-30] MEDS: Dronedarone HCl 400 MG TAB PO SCH ×2 (09:00→20:59)
[2020-07-30] MEDS: Famotidine 20 MG TAB PO SCH (09:00)
[2020-07-30] MEDS: Apixaban 2.5 MG TAB PO SCH ×2 (09:00→21:00)
[2020-07-30] MEDS: Valproate Sodium 250 mg/5 ml UD Cup PO SCH ×2 (09:00→21:02)
[2020-07-30] MEDS: Ezetimibe 10 MG TAB PO SCH (09:00)
--- NOTE | 2020-07-30 13:22 | PDOC.HOSPP ---
- Subjective Encounter Date: 07/30/20 (f/u UTI) Encounter Time: 13:20 Subjective: By report from RN, pt was up all night. Today has been sleeping most of the day. No other events noted. pt remains on oxygen - 2L NC. I'm unable to tell by his records if this is a new. - Objective Vital Signs & Weight: Vital Signs (12 hours) Pulse Resp BP Pulse Ox 07/30/20 08:59 80 07/30/20 08:58 80 07/30/20 08:34 79 21 H 143/80 H 98 07/30/20 05:43 98 Weight Admit Weight 142 lb Weight 142 lb I&O: 07/29/20 07/30/20 07/31/20 06:59 06:59 06:59 Intake Total 300 1155 Output Total 225 3175 Balance -2019 Result Diagrams: 07/30/20 04:02 07/30/20 04:02 Additional Labs: Accuchecks 07/30/20 07/29/20 07/29/20 11:03 23:32 18:20 POC Glucose 138 H 117 H 152 H Hospitalist ROS - Medication Medications: Active Medications Generic Name Dose Route Start Last Admin Trade Name Freq PRN Reason Stop Dose Admin Acetaminophen 650 mg 07/27/20 23:18 07/29/20 17:12 Acetaminophen 325 Mg Tab PO 650 mg Q4H PRN Administration Headache/Fever/Mild Pain (1-3) Apixaban 2.5 mg 07/29/20 09:00 07/30/20 09:00 Apixaban 2.5 Mg Tab PO 2.5 mg BID HUGH Administration Aspirin 81 mg 07/29/20 09:00 07/30/20 08:58 Aspirin Chewable 81 Mg Tab PO 81 mg DAILY HUGH Administration Atorvastatin Calcium 10 mg 07/28/20 21:00 07/29/20 21:25 Atorvastatin Calcium 10 Mg Tab PO 10 mg HS HUGH Administration Digoxin 0.125 mg 07/28/20 09:00 07/30/20 08:58 Digoxin 0.125 Mg Tab PO 0.125 mg QAM HUGH Administration Dronedarone 400 mg 07/28/20 09:00 07/30/20 09:00 Dronedarone Hcl 400 Mg Tab PO 400 mg BID HUGH Administration Ezetimibe 10 mg 07/28/20 09:00 07/30/20 09:00 Ezetimibe 10 Mg Tab PO 10 mg DAILY HUGH Administration Famotidine 20 mg 07/28/20 09:00 07/30/20 09:00 Famotidine 20 Mg Tab PO 20 mg 0900 HUGH Administration Furosemide 20 mg 07/28/20 09:00 07/30/20 08:59 Furosemide 20 Mg Tab PO 20 mg DAILY HUGH Administration Hydralazine HCl 25 mg 07/28/20 09:00 07/30/20 08:59 Hydralazine 25 Mg Tab PO 25 mg TID HUGH Administration Ceftriaxone Sodium 1 gm/ 100 mls @ 200 mls/hr 07/28/20 20:00 07/29/20 21:24 Sodium Chloride IVPB 100 mls Q24HR HUGH Administration Insulin Human Lispro 0 units 07/27/20 22:10 07/29/20 18:50 Humalog 300 Units/3 Ml Vial SC 2 unit .MODERATE SLIDING SC PRN Administration Moderate Correctional Scale Melatonin 3 mg 07/28/20 22:40 07/29/20 21:24 Melatonin 3 Mg Tab PO 3 mg HSPRN PRN Administration Insomnia Memantine 5 mg 07/28/20 09:00 07/30/20 08:59 Memantine Hcl 5 Mg Tab PO 5 mg BID HUGH Administration Memantine 10 mg 07/29/20 21:00 07/30/20 09:00 Memantine Hcl 10 Mg Tab PO 10 mg BID HUGH Administration Metoprolol Tartrate 50 mg 07/28/20 09:00 07/30/20 08:59 Metoprolol Tartrate 50 Mg Tab PO 50 mg BID HUGH Administration Mirtazapine 30 mg 07/28/20 21:00 07/29/20 22:11 Mirtazapine 30 Mg Tab PO Not Given HS HUGH Saccharomyces Boulardii 250 mg 07/28/20 09:00 07/30/20 08:58 Saccharomyces Boulardii 250 Mg Cap PO 250 mg DAILY HUGH Administration Sodium Chloride 10 ml 07/27/20 22:07 07/29/20 17:22 Flush - Normal Saline 10 Ml Syringe IVF 10 ml PRN PRN Administration Saline Flush Trazodone HCl 25 mg 07/29/20 21:00 07/29/20 21:24 Trazodone Hcl 50 Mg Tab PO 25 mg HS HUGH Administration Valproic Acid 500 mg 07/29/20 09:00 07/30/20 09:00 Valproate Sodium 250 Mg/5 Ml Ud Cup PO 500 mg BID HUGH Administration - Exam General Appearance: NAD Heart: RRR, no murmur Respiratory: no wheezes, no rales, no ronchi Gastrointestinal: soft, non-tender, non-distended, normal bowel sounds Extremities: no cyanosis, no clubbing, no edema Psychiatric - other findings: sleeping in no acute distress Hosp A/P (1) Pneumonia Code(s): J18.9 - PNEUMONIA, UNSPECIFIED ORGANISM Status: Suspected Qualifiers: Pneumonia type: due to unspecified organism (2) UTI (urinary tract infection) Status: Acute Qualifiers: Urinary tract infection type: acute cystitis (3) A-fib Code(s): I48.91 - UNSPECIFIED ATRIAL FIBRILLATION Status: Chronic Qualifiers: Atrial fibrillation type: unspecified Qualified Code(s): I48.91 - Unspecified atrial fibrillation (4) CAD (coronary artery disease) Code(s): I25.10 - ATHSCL HEART DISEASE OF [place] CORONARY ARTERY W/O ANG PCTRS Status: Chronic (5) CKD (chronic kidney disease), stage III Code(s): N18.30 - CHRONIC KIDNEY DISEASE, STAGE 3 UNSPECIFIED Status: Chronic (6) DM2 (diabetes mellitus, type 2) Status: Chronic Qualifiers: Chronic kidney disease stage 3 subtype: stage 3a (GFR 45-59) (7) Decubitus ulcer of sacral region, stage 3 Code(s): L89.153 - PRESSURE ULCER OF [place], STAGE 3 Status: Chronic (8) Hypertension Code(s): I10 - ESSENTIAL (PRIMARY) HYPERTENSION Status: Chronic (9) Pulmonary fibrosis Code(s): J84.10 - PULMONARY FIBROSIS, UNSPECIFIED Status: Chronic (10) Alzheimer's dementia Code(s): G30.9 - ALZHEIMER'S DISEASE, UNSPECIFIED Status: Chronic Qualifiers: (11) Protein-calorie malnutrition, moderate Code(s): E44.0 - MODERATE PROTEIN-CALORIE MALNUTRITION Status: Chronic (12) Swallowing dysfunction Code(s): R13.10 - DYSPHAGIA, UNSPECIFIED Status: Chronic (13) Heart failure Code(s): I50.9 - HEART FAILURE, UNSPECIFIED Status: Suspected Qualifiers: Heart failure type: combined systolic and diastolic Heart failure chron icity: acute on chronic Qualified Code(s): I50.43 - Acute on chronic combined systolic (congestive) and diastolic (congestive) heart failure - Plan UTI - MDR E Coli and Aeromonas - continue ceftriaxone while here, will transition to oral 3rd generation cephalosporin at discharge Acute respiratory failure with hypoxia - Possible pneumonia - chronic moderate to severe pulm fibrosis - on ceftriaxone - NH contacted and by report was not on oxygen prior to arrival. HF with reduced ejection fraction (known) and diastolic dysfunction - check chest xray as pt may have some volume overload contributing to hypoxia. If CXR shows pulmonary edema, will initiate lasix. - wean oxygen A fib - rate controlled - continue home meds - eliquis was resumed yesterda Sacral/foot ulcers - wound care consulting DM - controlled - home levemir not needed Aspiration risk - continue current diet order Overall difficult health picture - Pall care consult placed 2 days ago to assist with goals of care. I think pt/family will also benefit from discussion around code status. Cotninue home meds as ordered. DVT prophy - eliquis GI prophy - not indicated, on famotidine/home med Code status - full, confirmed on senior living list reviewed plan of care with RN, no questions or further needs at end of eval. Pt at high risk of recurrent admissions.
--- NOTE | 2020-07-30 14:28 | RAD ---
EXAM: Chest one view: HISTORY: Hypoxemia with history of pulmonary fibrosis COMPARISON: 07/27/2020 FINDINGS: Left-sided pacemaker Heart size: Minimal cardiomegaly. Lungs: Extensive bilateral mostly interstitial and reticular nodular parenchymal changes overall stab le from prior study. No pleural effusion. IMPRESSION: Evidence for extensive bilateral interstitial fibrosis, overall stable with minimal cardiomegaly.
[2020-07-30] MEDS: cefTRIAXone\\ROCEPHIN 1 GM in Sodium Chloride 0.9% 100 ML IVPB SCH (20:55)
[2020-07-30] MEDS: Mirtazapine 30 MG TAB PO SCH (20:59)
[2020-07-30] MEDS: Atorvastatin Calcium 10 MG TAB PO SCH (20:59)
[2020-07-30] MEDS: traZODone HCl 50 MG TAB PO SCH (21:03)
[2020-07-31 07:39] VITALS: BP 165/90; TEMP 97.8
[2020-07-31 08:10] LABS: #Eosinphils 0.2 thou/uL (0.0-0.7); #Lymphocytes 1.2 thou/uL (1.20-3.40); #Monocytes 0.6 thou/uL (0.11-0.59); #Neutrophils 7.3 thou/uL (1.40-6.50); %Basophils 0.4 % (0.0-1.0); %Eosinophils 2.3 % (0.0-10.0); %Lymphocytes 12.8 % (21.0-51.0); %Monocytes 6.7 % (0.0-10.0); %Neutrophils 77.8 % (42.0-75.0); Hemoglobin 12.7 g/dL (14.0-18.0); Mean Corpuscular HGB CONC 31.6 g/dL (32.0-36.0); Mean Corpuscular Hemoglobin 28.4 pg (27.0-31.0); Mean Corpuscular Volume 89.8 fL (78.0-98.0); Mean Platelet Volume 7.4 fL (7.4-10.4); Platelet Count 325 thou/uL (130-400); RBC Distribution Width 14.4 % (11.5-14.5); Red Blood Cell (RBC) Count 4.49 mill/uL (4.70-6.10); White Blood Cell (WBC) Count 9.4 thou/uL (4.8-10.8)
[2020-07-31 08:38] LABS: Anion Gap 13 mmol/L (10-20); BUN (Urea Nitrogen) 18 mg/dL (8.4-25.7); Calc. Creatinine Clearance 63 mL/min (70-130); Carbon Dioxide 24 mmol/L (23-31); Chloride 110 mmol/L (98-107); Estimated GFR-MDRD Greater than 90; Glucose 124 mg/dL (83-110); Potassium 3.2 mmol/L (3.5-5.1); Sodium 144 mmol/L (136-145)
[2020-07-31] MEDS: Saccharomyces boulardii 250 MG CAP PO SCH (09:00)
[2020-07-31] MEDS: Dronedarone HCl 400 MG TAB PO SCH (09:00)
[2020-07-31] MEDS: Valproate Sodium 250 mg/5 ml UD Cup PO SCH (09:30)
[2020-07-31] MEDS: Famotidine 20 MG TAB PO SCH (09:30)
[2020-07-31] MEDS: Metoprolol Tartrate 50 MG TAB PO SCH (09:30)
[2020-07-31] MEDS: Ezetimibe 10 MG TAB PO SCH (09:31)
[2020-07-31] MEDS: Apixaban 2.5 MG TAB PO SCH (09:31)
[2020-07-31] MEDS: hydrALAZINE 25 MG TAB PO SCH ×2 (09:31→15:51)
[2020-07-31] MEDS: Furosemide 20 MG TAB PO SCH (09:31)
[2020-07-31] MEDS: Digoxin 0.125 MG TAB PO SCH (09:31)
[2020-07-31] MEDS: Aspirin Chewable 81 MG TAB PO SCH (09:31)
[2020-07-31] MEDS ORDERED: Cefdinir 300 MG CAP PO SCH (21:00)
--- NOTE | 2020-08-01 07:57 | DIS ---
DATE OF ADMISSION: 07/27/2020 DATE OF DISCHARGE: 07/31/2020 PRIMARY CARE PROVIDER: Seng Nation MD. FINAL DIAGNOSES: Pneumonia, urinary tract infection, pulmonary fibrosis, paroxysmal atrial fibrillation, coronary artery disease without angina, hypertension, diabetes mellitus type 2 with normal kidney function, dyslipidemia, Alzheimer disease, seizure disorder. DISCHARGE MEDICATIONS: 1. Insulin NovoLog 2 to 6 units subcu b.i.d. p.r.n. per sliding scale at long-term. 2. Eliquis 2.5 mg twice a day. 3. Valproic acid 500 mg p.o. b.i.d. 4. Levemir 5 units subcu at bedtime. 5. Vitamin D3. 6. Multivitamin. 7. Nystatin powder. 8. Lasix 20 mg a day. 9. Remeron 30 mg a day. 10. Memantine 10 mg p.o. b.i.d. 11. Zetia 10 mg a day. 12. Digoxin 0.125 mg a day. 13. Metoprolol 50 mg twice a day. 14. Apresoline 25 mg three times a day. 15. Zocor 20 mg a day. 16. Florastor 250 mg a day. 17. Omnicef 300 mg p.o. b.i.d. x7 days. ALLERGIES: NO KNOWN DRUG ALLERGIES. DIET: Heart healthy. PENDING AT TIME OF DISCHARGE: Nothing. CODE STATUS: Full. HOSPITAL COURSE: The patient admitted through the emergency room to the Hospitalist Service. The patient with severe dementia, unable to give any decent history. Chest x-ray reported moderate interstitial lung disease. Pneumonia could not be ruled out. UA was positive for white cells, leukocyte esterase. BUN was 15, creatinine 1.6. The patient was placed on Rocephin and Zithromax. His initial white count demonstrated a normal white count with a mild neutrophilia. White count remained stable during his hospital stay. His initial BUN and creatinine were elevated at 51 and 1.63, came down to normal with IV fluids and therapy. His chest x-ray was repeated today, demonstrates no confluent infiltrates, no change during his hospitalization. Echocardiogram revealed EF of 40% to 45% with diastolic dysfunction. His vital signs today are normal. He has been afebrile since admission. His chest reveals bilateral rales. He is alert, but oriented to person only. I have spoken with his daughter. Basically, his abdominal exam, cardiorespiratory exam are unremarkable except for a few rales. He is being discharged back to the [facility] on his usual medicines plus the Omnicef 1 a day p.o. for 7 more days. Urine culture grew Escherichia coli and Enterococcus, both sensitive to ceftriaxone, which he was on with a transition to Omnicef being a reasonable thing. 1/2 blood cultures grew Clostridium perfringens, considered a skin contaminant at this point. No consultations. No procedures. Job ID: [id number] [facility]
--- NOTE | 2020-08-02 04:17 | PQF ---
Dear : Kulwinder, [place] Date 08/02/20 Please exercise your independent, professional judgment in responding to the clarification form. Clinical indicators are provided on the bottom of this form for your review Can you please further clarify the specificity of Pneumonia? Please check appropriate box(es): [ ] Aspiration Pneumonia [ ] Aspiration Bronchitis [ ] Empirically treating Gram Negative Pneumonia [ ] Empirically treating Anaerobic Pneumonia [ ] Pneumonia secondary to (specify organism / underlying disease) [ ] Simple Pneumonia [ ] Bronchopneumonia [ ] Pneumonia of unknown etiology [ ] Other diagnosis please specify __pneumonia on chronic interstitial lung disease [ ] Unable to determine Physician Signature: Date/Time: For continuity of documentation, please document condition throughout progress notes and discharge summary. Thank You. To be completed by CDI/Coding staff for physician review: Present Clinical Indicators - Signs / Symptoms / Labs Results and Location in Medical Record [ x ] Moderate to severe chronic interstitial lung disease: Pulmonary fibrosis Chest X ray pg.1 [ x ] Tachypnea, hypoxia ED Provider pg.1 [ x ] Dysphagia ED Provider pg.1 [ x ] Pneumonia H and P pg.5 [ x ] RN notes concern of aspiration with taking PO- noted in diet with aspiration risk Hospitalist PN 07/29 pg.1 [ x ] Pneumonia type: due to unspecified organism Hospitalist PN 07/29 pg.5 [ x ] Swallowing dysfunction Hospitalist PN 07/29 pg.5 [ x ] Blood culture clostridium perfringens Microbiology 07/27 Present Risk Factors Results and Location in Medical Record [ x ] AFIB ED Provider pg.1 [ x ] COPD ED Provider pg.1 [ x ] CVA ED Provider pg.1 [ x ] CAD ED Provider pg.1 [ x ] Asthma ED Provider pg.1 [ x ] Pulmonary Fibrosis H and P pg.1 [ x ] Acute respiratory failure with hypoxia Hospitalist PN 07/29 pg.6 [ x ] Moderate protein malnutrition Hospitalist PN 07/29 pg.5 Present Treatments Results and Location in Medical Record [ x ] Chest X ray 07/27/20 Chest X ray 07/27/20 [ x ] IV Fluids MAR [ x ] Rocephin 1gm MAR [ x ] Azithromycin 500 mg IV MAR [ x ] DuoNeb 3ml NEB MAR [ x ] Levaquin 750mg IV MAR [ x ] Cefdinir 300 mg PO MAR CDS/Type Inspector Signature: Carlos Decker Phone #: ext [phone] Date 08/02/20 This is a permanent part of the Medical Record [facility]
--- NOTE | 2020-08-02 19:03 | PQF ---
Dear : Kulwinder, [place] Date 08/02/2020 Please exercise your independent, professional judgment in responding to the clarification form. Clinical indicators are provided on the bottom of this form for your review Can you please further clarify the type and acuity of CHF? Please check appropriate box(es): HEART FAILURE: A. ACUITY [ ] Acute [ s] Acute on Chronic [ ] Chronic B. TYPE: [ ] Systolic / HFrEF [ ] Diastolic / HFpEF [ s] Combined Systolic / Diastolic [ ] Other diagnosis [ ] Unable to determine In addition, please specify: Present on Admission (POA): [ s ] Yes [ ] No [ ] Unable to determine Physician Signature: Date/Time: For continuity of documentation, please document condition throughout progress notes and discharge summary. Thank You. To be completed by CDI/Coding staff for physician review: Present Clinical Indicators - Signs / Symptoms / Labs Results and Location in Medical Record [ x ] BNP: 65.0 Laboratory [ x ] Hypoxemia H and P pg.1 [ x ] Extremities: No edema H and P pg.3 [ x ] EF 40-45% with grade 3 diastolic dysfunction Hospitalist PN pg.3 07/29 [ x ] Acute on chronic combined systolic and diastolic Hospitalist PN pg.6 07/30 [ x ] HF with reduced ejection fraction (known) and distolic dysfunction Hospitalist PN pg.6 07/30 [ x ] Have some volume overload contributing to hypoxia Hospitalist PN pg.6 07/30 [ x ] No pleural effusion Chest X ray 07/30 [ x ] Minimal cardiomegaly Chest X ray 07/30 [ x ] Concern for heart failure exacerbation Hospitalist PN pg.4 07/29 Present Risk Factors Results and Location in Medical Record [ x ] 85 years old H and P pg.2 [ x ] CAD H and P pg.2 [ x ] A. Fib H and P pg.2 [ x ] DM2 H and P pg.2 [ x ] HTN H and P pg.2 [ x ] HLD H and P pg.2 [ x ] Pulmonary fibrosis H and P pg.2 [ x ] CKD3 H and P pg.4 Present Treatments Results and Location in Medical Record [ x ] Echocardiogram Echocardiogram 07/29 [ x ] Chest X ray 07/27 Chest X ray 07/27 [ x ] O2 supplementation Patient care [ x ] Lasix 20mg PO MAR CDS/Reservations Sales Supervisor Signature: Nomat, Carlos Domecq Phone #: ext [phone] Date 08/02/20 This is a permanent part of the Medical Record [facility]
== END 2020-07-31 16:32 | DRG 193 ==
LOC: ERS 19:02 → ONC 21:14 → ERHOLD 21:14 → ONC 07-28 13:58
PROVIDERS: ADMIT Internal Medicine; ATTEND Internal Medicine
PROC: 8E0ZXY6 Isolation (ICD-10-PCS; principal; 2020-07-27)
DX: J18.9 Pneumonia, unspecified organism (principal); L89.613 Pressure ulcer of right heel, stage 3; L89.153 Pressure ulcer of sacral region, stage 3; J96.01 Acute respiratory failure with hypoxia; I50.43 Acute on chronic combined systolic (congestive) and diastolic (congestive) heart failure; I13.0 Hypertensive heart and chronic kidney disease with heart failure and stage 1 through stage 4 chronic kidney disease, or unspecified chronic kidney disease; J44.0 Chronic obstructive pulmonary disease with (acute) lower respiratory infection; I69.354 Hemiplegia and hemiparesis following cerebral infarction affecting left non-dominant side; I24.8 Other forms of acute ischemic heart disease; N17.9 Acute kidney failure, unspecified; E44.0 Moderate protein-calorie malnutrition; Z68.1 Body mass index [BMI] 19.9 or less, adult; N30.00 Acute cystitis without hematuria; J84.10 Pulmonary fibrosis, unspecified; Z20.828 Contact with and (suspected) exposure to other viral communicable diseases; K21.9 Gastro-esophageal reflux disease without esophagitis; N40.0 Benign prostatic hyperplasia without lower urinary tract symptoms; E78.5 Hyperlipidemia, unspecified; F32.9 Major depressive disorder, single episode, unspecified; I25.10 Atherosclerotic heart disease of native coronary artery without angina pectoris; R13.10 Dysphagia, unspecified; E11.22 Type 2 diabetes mellitus with diabetic chronic kidney disease; N18.30 Chronic kidney disease, stage 3 unspecified; I48.0 Paroxysmal atrial fibrillation; F41.9 Anxiety disorder, unspecified; G30.9 Alzheimer's disease, unspecified; B96.20 Unspecified Escherichia coli [E. coli] as the cause of diseases classified elsewhere; G40.909 Epilepsy, unspecified, not intractable, without status epilepticus; F02.80 Dementia in other diseases classified elsewhere, unspecified severity, without behavioral disturbance, psychotic disturbance, mood disturbance, and anxiety; Z95.1 Presence of aortocoronary bypass graft; Z95.0 Presence of cardiac pacemaker; Z79.01 Long term (current) use of anticoagulants; Z79.899 Other long term (current) drug therapy; I69.391 Dysphagia following cerebral infarction
CPT/HCPCS: 36415; 36416; 51701; 71045; 80048; 80053; 80061; 80162; 81003; 81015; 82553; 83605; 83735; 83880; 84443; 84484; 85025; 85610; 85652; 85730; 86140; 87040; 87076; 87077; 87086; 87186; 87635; 93005; 93306; 94760; 96365; 96367; J0456; J0696; J3490; U0002; U0003

== ENCOUNTER 2021-06-10 11:25 | Emergency (ER) | payer MEDICARE, MEDICAID ==
[2021-06-10 12:12] LABS: #Eosinphils 0.5 thou/uL (0.0-0.7); #Lymphocytes 2.2 thou/uL (1.20-3.40); #Monocytes 0.7 thou/uL (0.11-0.59); #Neutrophils 7.8 thou/uL (1.40-6.50); %Basophils 0.3 % (0.0-1.0); %Eosinophils 4.7 % (0.0-10.0); %Lymphocytes 19.4 % (21.0-51.0); %Monocytes 6.2 % (0.0-10.0); %Neutrophils 69.4 % (42.0-75.0); Hemoglobin 11.9 g/dL (14.0-18.0); Mean Corpuscular HGB CONC 33.6 g/dL (32.0-36.0); Mean Corpuscular Hemoglobin 30.7 pg (27.0-31.0); Mean Corpuscular Volume 91.4 fL (78.0-98.0); Mean Platelet Volume 7.5 fL (7.4-10.4); Platelet Count 207 thou/uL (130-400); RBC Distribution Width 13.5 % (11.5-14.5); Red Blood Cell (RBC) Count 3.87 mill/uL (4.70-6.10); White Blood Cell (WBC) Count 11.3 thou/uL (4.8-10.8)
[2021-06-10 12:43] LABS: ALT (SGPT) 17 U/L (8-55); AST (SGOT) 15 U/L (5-34); Albumin 2.9 g/dL (3.4-4.8); Alkaline Phosphatase 78 U/L (40-110); BUN (Urea Nitrogen) 40 mg/dL (8.4-25.7); Bilirubin, Total 0.2 mg/dL (0.2-1.2); Calc. Creatinine Clearance 0 mL/min (70-130); Calcium 7.9 mg/dL (7.8-10.44); Carbon Dioxide 20 mmol/L (23-31); Chloride 113 mmol/L (98-107); Globulin 3.7 g/dL (2.4-3.5); Glucose 144 mg/dL (83-110); Lipase 43 U/L (8-78); Protein, Total 6.6 g/dL (5.8-8.1); Sodium 139 mmol/L (136-145)
[2021-06-10 12:58] LABS: Anion Gap 11 mmol/L (10-20)
[2021-06-10] MEDS ORDERED: Morphine 2 MG/ML VIAL ONE (13:05)
[2021-06-10 13:19] LABS: Digoxin 1.25 ng/mL (0.8-2.0)
[2021-06-10 13:19] LABS: Bilirubin Negative (Negative); Blood, Urine Negative (Negative); Clarity Turbid (Clear); Glucose, Urine (Dipstick) Normal (Negative); Ketone, Urine Negative (Negative); Leukocyte 500 Leu/uL (Negative); Nitrite Negative (Negative); Protein, Urine (Dipstick) 50 mg/dL (Neg-Trace); Specific Gravity, Urine 1.016 (1.002-1.036); Squamous Epithelial 0-3 HPF (0-3); Urobilinogen Normal mg/dL (Less than 2); pH, Urine 5.5 (5.0-9.0)
[2021-06-10 13:27] LABS: Bacteria/HPF 1+ HPF (None Seen); Yeast-Budding 2+ HPF (None Seen)
[2021-06-10] MEDS ORDERED: cefTRIAXone\\ROCEPHIN 1 GM VIAL ONE (13:50)
== END 2021-06-10 17:17 | disposition home or self-care (01) ==
LOC: ERS 11:25
DX: S00.93XA Contusion of unspecified part of head, initial encounter (principal); E86.0 Dehydration; N39.0 Urinary tract infection, site not specified; I48.91 Unspecified atrial fibrillation; J44.9 Chronic obstructive pulmonary disease, unspecified; K21.9 Gastro-esophageal reflux disease without esophagitis; E11.9 Type 2 diabetes mellitus without complications; I25.10 Atherosclerotic heart disease of native coronary artery without angina pectoris; E78.5 Hyperlipidemia, unspecified; I10 Essential (primary) hypertension; J45.909 Unspecified asthma, uncomplicated; Z79.899 Other long term (current) drug therapy; Z86.73 Personal history of transient ischemic attack (TIA), and cerebral infarction without residual deficits; Z79.01 Long term (current) use of anticoagulants; W06.XXXA Fall from bed, initial encounter
CPT/HCPCS: 70450; 71045; 80053; 80162; 83690; 84484; 85025; 93005; 94760; J2270; 81003; 81015; 96365; 96375; J0696

== ENCOUNTER 2021-06-23 22:28 | Emergency (ER) | payer MEDICARE, MEDICAID ==
[~2021-06-23 22:28] MED LIST: Iopamidol-370 76% 500 ML 1 ML ONE
[2021-06-23 23:46] LABS: #Basophils 0.1 thou/uL (0.0-0.2); #Eosinphils 0.2 thou/uL (0.0-0.7); #Lymphocytes 2.5 thou/uL (1.20-3.40); #Monocytes 0.8 thou/uL (0.11-0.59); #Neutrophils 9.3 thou/uL (1.40-6.50); %Basophils 0.6 % (0.0-1.0); %Eosinophils 1.5 % (0.0-10.0); %Lymphocytes 19.3 % (21.0-51.0); %Monocytes 6.5 % (0.0-10.0); %Neutrophils 72.1 % (42.0-75.0); Hemoglobin 12.9 g/dL (14.0-18.0); Mean Corpuscular HGB CONC 34.1 g/dL (32.0-36.0); Mean Corpuscular Hemoglobin 31.3 pg (27.0-31.0); Mean Platelet Volume 7.3 fL (7.4-10.4); Platelet Count 270 thou/uL (130-400); RBC Distribution Width 13.6 % (11.5-14.5); Red Blood Cell (RBC) Count 4.11 mill/uL (4.70-6.10); White Blood Cell (WBC) Count 12.9 thou/uL (4.8-10.8)
[2021-06-24 00:05] LABS: Digoxin 1.32 ng/mL (0.8-2.0)
[2021-06-24 00:08] LABS: ALT (SGPT) 27 U/L (8-55); AST (SGOT) 25 U/L (5-34); Albumin 3.2 g/dL (3.4-4.8); Alkaline Phosphatase 110 U/L (40-110); Anion Gap 18 mmol/L (10-20); BUN (Urea Nitrogen) 66 mg/dL (8.4-25.7); Bilirubin, Total 0.2 mg/dL (0.2-1.2); Calc. Creatinine Clearance 0 mL/min (70-130); Calcium 7.9 mg/dL (7.8-10.44); Carbon Dioxide 19 mmol/L (23-31); Chloride 108 mmol/L (98-107); Globulin 4.4 g/dL (2.4-3.5); Glucose 137 mg/dL (83-110); Lipase 34 U/L (8-78); Potassium 4.6 mmol/L (3.5-5.1); Protein, Total 7.6 g/dL (5.8-8.1); Sodium 140 mmol/L (136-145)
[2021-06-24 01:53] LABS: Bacteria/HPF None Seen HPF (None Seen); Bilirubin Negative (Negative); Blood, Urine Negative (Negative); Clarity Turbid (Clear); Glucose, Urine (Dipstick) Normal (Negative); Ketone, Urine Negative (Negative); Leukocyte 500 Leu/uL (Negative); Nitrite Negative (Negative); Protein, Urine (Dipstick) 50 mg/dL (Neg-Trace); Squamous Epithelial 0-3 HPF (0-3); Urobilinogen Normal mg/dL (Less than 2); WBC/HPF Greater than 50 HPF (0-3); Yeast-Budding 2+ HPF (None Seen); pH, Urine 5.5 (5.0-9.0)
== END 2021-06-24 03:41 | disposition home or self-care (01) ==
LOC: ERS 22:28
DX: K59.00 Constipation, unspecified (principal); N39.0 Urinary tract infection, site not specified; I12.9 Hypertensive chronic kidney disease with stage 1 through stage 4 chronic kidney disease, or unspecified chronic kidney disease; E11.22 Type 2 diabetes mellitus with diabetic chronic kidney disease; I48.91 Unspecified atrial fibrillation; K21.9 Gastro-esophageal reflux disease without esophagitis; N18.9 Chronic kidney disease, unspecified; I25.10 Atherosclerotic heart disease of native coronary artery without angina pectoris; E78.5 Hyperlipidemia, unspecified; L89.629 Pressure ulcer of left heel, unspecified stage; J44.9 Chronic obstructive pulmonary disease, unspecified; Z86.73 Personal history of transient ischemic attack (TIA), and cerebral infarction without residual deficits; Z79.01 Long term (current) use of anticoagulants; Z79.899 Other long term (current) drug therapy
CPT/HCPCS: 51701; 71045; 74177; 80053; 80162; 81003; 81015; 82553; 83690; 84484; 85025; 87086; 93005; Q9967

== ENCOUNTER 2021-07-08 11:01 | Emergency (ER) | payer MEDICARE, MEDICAID | END 2021-07-08 12:55 | disposition home or self-care (01) | LOC: ERS 11:01 | DX: S42.211A Unspecified displaced fracture of surgical neck of right humerus, initial encounter for closed fracture (principal); S22.039A Unspecified fracture of third thoracic vertebra, initial encounter for closed fracture; R29.810 Facial weakness; R47.81 Slurred speech; I48.91 Unspecified atrial fibrillation; J44.9 Chronic obstructive pulmonary disease, unspecified; Z86.73 Personal history of transient ischemic attack (TIA), and cerebral infarction without residual deficits; K21.9 Gastro-esophageal reflux disease without esophagitis; J45.909 Unspecified asthma, uncomplicated; E11.9 Type 2 diabetes mellitus without complications; Z79.01 Long term (current) use of anticoagulants; Z79.4 Long term (current) use of insulin; Z79.899 Other long term (current) drug therapy; W18.30XA Fall on same level, unspecified, initial encounter; Y92.129 Unspecified place in nursing home as the place of occurrence of the external cause | CPT/HCPCS: 70450; 72125 ==

== ENCOUNTER 2021-07-19 20:59 | Emergency (ER) | payer MEDICARE, MEDICAID ==
[2021-07-19] MEDS ORDERED: Ondansetron PF 4 MG/2 ML Vial ONE (23:13)
[2021-07-19] MEDS ORDERED: Lorazepam 2 MG/ML VIAL ONE (23:24)
[2021-07-19 23:34] LABS: ALT (SGPT) 12 U/L (8-55); AST (SGOT) 13 U/L (5-34); Albumin 3.4 g/dL (3.4-4.8); Alkaline Phosphatase 108 U/L (40-110); Anion Gap 12 mmol/L (10-20); BUN (Urea Nitrogen) 60 mg/dL (8.4-25.7); Bilirubin, Total 0.3 mg/dL (0.2-1.2); Calc. Creatinine Clearance 0 mL/min (70-130); Calcium 8.3 mg/dL (7.8-10.44); Carbon Dioxide 24 mmol/L (23-31); Chloride 108 mmol/L (98-107); Globulin 4.3 g/dL (2.4-3.5); Glucose 137 mg/dL (83-110); Lipase 50 U/L (8-78); Protein, Total 7.7 g/dL (5.8-8.1); Sodium 139 mmol/L (136-145)
[2021-07-19 23:35] LABS: #Eosinphils 0.4 thou/uL (0.0-0.7); #Lymphocytes 3.2 thou/uL (1.20-3.40); #Monocytes 0.9 thou/uL (0.11-0.59); #Neutrophils 5.4 thou/uL (1.40-6.50); %Basophils 0.3 % (0.0-1.0); %Eosinophils 4.4 % (0.0-10.0); %Lymphocytes 31.8 % (21.0-51.0); %Monocytes 9.1 % (0.0-10.0); %Neutrophils 54.4 % (42.0-75.0); Hemoglobin 12.5 g/dL (14.0-18.0); Mean Corpuscular HGB CONC 34.3 g/dL (32.0-36.0); Mean Corpuscular Volume 93.4 fL (78.0-98.0); Mean Platelet Volume 6.8 fL (7.4-10.4); Platelet Count 242 thou/uL (130-400); RBC Distribution Width 13.5 % (11.5-14.5); Red Blood Cell (RBC) Count 3.89 mill/uL (4.70-6.10); White Blood Cell (WBC) Count 9.9 thou/uL (4.8-10.8)
[2021-07-20 00:20] LABS: Bilirubin Negative (Negative); Blood, Urine 2+ (Negative); Clarity Extra Turbid (Clear); Glucose, Urine (Dipstick) Normal (Negative); Ketone, Urine Negative (Negative); Leukocyte 500 Leu/uL (Negative); Nitrite Negative (Negative); Protein, Urine (Dipstick) 100 mg/dL (Neg-Trace); Specific Gravity, Urine 1.014 (1.002-1.036); Urobilinogen Normal mg/dL (Less than 2); WBC/HPF Greater than 50 HPF (0-3)
[2021-07-20 00:46] LABS: Bacteria/HPF 1+ HPF (None Seen); RBC/HPF 0-3 HPF (0-3); Squamous Epithelial 0-3 HPF (0-3)
== END 2021-07-20 01:57 ==
LOC: ERS 20:59
DX: K56.41 Fecal impaction (principal); N39.0 Urinary tract infection, site not specified; I48.91 Unspecified atrial fibrillation; J44.9 Chronic obstructive pulmonary disease, unspecified; K21.9 Gastro-esophageal reflux disease without esophagitis; E11.9 Type 2 diabetes mellitus without complications; I25.10 Atherosclerotic heart disease of native coronary artery without angina pectoris; E78.5 Hyperlipidemia, unspecified; I10 Essential (primary) hypertension; Z86.73 Personal history of transient ischemic attack (TIA), and cerebral infarction without residual deficits; Z79.01 Long term (current) use of anticoagulants; Z79.4 Long term (current) use of insulin; Z79.899 Other long term (current) drug therapy
CPT/HCPCS: 36415; 51701; 74177; 80053; 81003; 81015; 83690; 84484; 85025; 87077; 87086; 87186; 93005; 96374; 96375; J2060; J2405

== ENCOUNTER 2021-09-26 10:42 | Outpatient (CLI) | payer MEDICARE, MEDICAID | END 2021-09-26 10:43 | disposition home or self-care (01) | LOC: RAD 10:42 | DX: M48.54XA Collapsed vertebra, not elsewhere classified, thoracic region, initial encounter for fracture (principal) | CPT/HCPCS: 72070 ==

== ENCOUNTER 2021-09-29 10:22 | Emergency (ER) | payer MEDICARE, MEDICAID ==
[2021-09-29 11:18] LABS: #Basophils 0.1 thou/uL (0.0-0.2); #Eosinphils 0.4 thou/uL (0.0-0.7); #Monocytes 0.9 thou/uL (0.11-0.59); #Neutrophils 6.4 thou/uL (1.40-6.50); %Basophils 0.6 % (0.0-1.0); %Eosinophils 3.9 % (0.0-10.0); %Lymphocytes 20.7 % (21.0-51.0); %Monocytes 9.3 % (0.0-10.0); %Neutrophils 65.5 % (42.0-75.0); Mean Corpuscular HGB CONC 34.8 g/dL (32.0-36.0); Mean Corpuscular Hemoglobin 32.4 pg (27.0-31.0); Mean Corpuscular Volume 93.2 fL (78.0-98.0); Mean Platelet Volume 6.9 fL (7.4-10.4); Platelet Count 186 thou/uL (130-400); RBC Distribution Width 12.7 % (11.5-14.5); White Blood Cell (WBC) Count 9.7 thou/uL (4.8-10.8)
[2021-09-29 11:37] LABS: ALT (SGPT) Less than 7 U/L (8-55); AST (SGOT) 7 U/L (5-34); Alkaline Phosphatase 78 U/L (40-110); Anion Gap 12 mmol/L (10-20); BUN (Urea Nitrogen) 48 mg/dL (8.4-25.7); Bilirubin, Total 0.2 mg/dL (0.2-1.2); Calc. Creatinine Clearance 0 mL/min (70-130); Calcium 8.1 mg/dL (7.8-10.44); Carbon Dioxide 20 mmol/L (23-31); Chloride 111 mmol/L (98-107); Globulin 3.9 g/dL (2.4-3.5); Glucose 130 mg/dL (83-110); Potassium 4.3 mmol/L (3.5-5.1); Protein, Total 6.9 g/dL (5.8-8.1); Sodium 139 mmol/L (136-145)
[2021-09-29] MEDS ORDERED: Acetaminophen 500 MG TAB ONE (12:39)
[2021-09-29] MEDS ORDERED: busPIRone HCl 5 MG TAB PO SCH (15:30)
== END 2021-09-29 16:33 ==
LOC: ERS 10:22
DX: S00.03XA Contusion of scalp, initial encounter (principal); W19.XXXA Unspecified fall, initial encounter; I25.10 Atherosclerotic heart disease of native coronary artery without angina pectoris; E78.5 Hyperlipidemia, unspecified; I10 Essential (primary) hypertension; I48.91 Unspecified atrial fibrillation; J44.9 Chronic obstructive pulmonary disease, unspecified; E11.9 Type 2 diabetes mellitus without complications; K21.9 Gastro-esophageal reflux disease without esophagitis; Z86.73 Personal history of transient ischemic attack (TIA), and cerebral infarction without residual deficits; Z79.01 Long term (current) use of anticoagulants
CPT/HCPCS: 36415; 70450; 71045; 72125; 72131; 80053; 85025; 93005

== ENCOUNTER 2022-04-19 12:53 | Emergency (ER) | payer MEDICARE, MEDICAID ==
[2022-04-19 13:50] LABS: #Eosinphils 0.3 thou/uL (0.0-0.7); #Lymphocytes 1.9 thou/uL (1.20-3.40); %Basophils 0.1 % (0.0-1.0); %Eosinophils 2.4 % (0.0-10.0); %Monocytes 8.9 % (0.0-10.0); %Neutrophils 71.6 % (42.0-75.0); Hemoglobin 10.6 g/dL (14.0-18.0); Mean Corpuscular HGB CONC 33.4 g/dL (32.0-36.0); Mean Corpuscular Hemoglobin 30.3 pg (27.0-31.0); Mean Corpuscular Volume 90.7 fL (78.0-98.0); Mean Platelet Volume 7.3 fL (7.4-10.4); Platelet Count 220 thou/uL (130-400); RBC Distribution Width 14.1 % (11.5-14.5); White Blood Cell (WBC) Count 11.1 thou/uL (4.8-10.8)
[2022-04-19 14:11] LABS: ALT (SGPT) Less than 7 U/L (8-55); AST (SGOT) 8 U/L (5-34); Albumin 2.7 g/dL (3.4-4.8); Alkaline Phosphatase 79 U/L (40-110); Anion Gap 11 mmol/L (10-20); BUN (Urea Nitrogen) 42 mg/dL (8.4-25.7); Bilirubin, Total 0.2 mg/dL (0.2-1.2); CK (CPK) 19 U/L (30-200); Calc. Creatinine Clearance 0 mL/min (70-130); Calcium 7.8 mg/dL (7.8-10.44); Carbon Dioxide 23 mmol/L (23-31); Chloride 112 mmol/L (98-107); Estimated GFR 35; Glucose 99 mg/dL (83-110); Potassium 5.4 mmol/L (3.5-5.1); Protein, Total 6.7 g/dL (5.8-8.1); Sodium 141 mmol/L (136-145)
[2022-04-19] MEDS ORDERED: Cefepime 2 GM VIAL ONE (14:59)
[2022-04-19 15:31] LABS: Bacteria/HPF None Seen HPF (None Seen); Bilirubin Negative (Negative); Blood, Urine Negative (Negative); Clarity Clear (Clear); Glucose, Urine (Dipstick) Normal (Negative); Ketone, Urine Negative (Negative); Leukocyte 75 Leu/uL (Negative); Nitrite Negative (Negative); Protein, Urine (Dipstick) 100 mg/dL (Neg-Trace); RBC/HPF 0-3 HPF (0-3); Specific Gravity, Urine 1.019 (1.002-1.036); Squamous Epithelial None Seen HPF (0-3); Urobilinogen Normal mg/dL (Less than 2); Yeast-Budding 2+ HPF (None Seen)
[2022-04-19] MEDS ORDERED: Vancomycin HCl 750 MG in Sodium Chloride 0.9% 250 ML 250 ML IVPB SCH (15:45)
== END 2022-04-19 18:37 ==
LOC: ERS 12:53
DX: J18.9 Pneumonia, unspecified organism (principal); R41.82 Altered mental status, unspecified; I48.91 Unspecified atrial fibrillation; J44.9 Chronic obstructive pulmonary disease, unspecified; K21.9 Gastro-esophageal reflux disease without esophagitis; N40.0 Benign prostatic hyperplasia without lower urinary tract symptoms; E78.2 Mixed hyperlipidemia; I10 Essential (primary) hypertension; F03.90 Unspecified dementia, unspecified severity, without behavioral disturbance, psychotic disturbance, mood disturbance, and anxiety; E11.22 Type 2 diabetes mellitus with diabetic chronic kidney disease; I12.9 Hypertensive chronic kidney disease with stage 1 through stage 4 chronic kidney disease, or unspecified chronic kidney disease; N18.9 Chronic kidney disease, unspecified; Z86.73 Personal history of transient ischemic attack (TIA), and cerebral infarction without residual deficits; Z79.01 Long term (current) use of anticoagulants; Z79.899 Other long term (current) drug therapy
CPT/HCPCS: 36415; 51701; 70450; 71045; 72125; 80053; 81003; 81015; 82550; 83605; 83880; 84484; 85025; 87040; 87086; 93005; 96365; 96367; J0692; J1956; J3370; J7050

== ENCOUNTER 2022-05-01 20:13 | Inpatient (IN) | payer MEDICARE, MEDICAID ==
[2022-05-01 21:02] LABS: #Eosinphils 0.4 thou/uL (0.0-0.7); #Lymphocytes 2.5 thou/uL (1.20-3.40); #Neutrophils 6.5 thou/uL (1.40-6.50); %Basophils 0.2 % (0.0-1.0); %Eosinophils 4.1 % (0.0-10.0); %Lymphocytes 23.7 % (21.0-51.0); %Monocytes 9.3 % (0.0-10.0); %Neutrophils 62.6 % (42.0-75.0); Hemoglobin 10.2 g/dL (14.0-18.0); Mean Corpuscular HGB CONC 32.6 g/dL (32.0-36.0); Mean Corpuscular Hemoglobin 29.5 pg (27.0-31.0); Mean Corpuscular Volume 90.5 fL (78.0-98.0); Mean Platelet Volume 6.8 fL (7.4-10.4); Platelet Count 272 thou/uL (130-400); Red Blood Cell (RBC) Count 3.46 mill/uL (4.70-6.10); White Blood Cell (WBC) Count 10.3 thou/uL (4.8-10.8)
[2022-05-01 21:20] LABS: ALT (SGPT) Less than 7 U/L (8-55); AST (SGOT) 8 U/L (5-34); Albumin 2.6 g/dL (3.4-4.8); Alkaline Phosphatase 69 U/L (40-110); Anion Gap 12 mmol/L (10-20); BUN (Urea Nitrogen) 38 mg/dL (8.4-25.7); Bilirubin, Total 0.3 mg/dL (0.2-1.2); Calc. Creatinine Clearance 0 mL/min (70-130); Calcium 8.1 mg/dL (7.8-10.44); Carbon Dioxide 24 mmol/L (23-31); Chloride 107 mmol/L (98-107); Estimated GFR 56; Globulin 4.3 g/dL (2.4-3.5); Glucose 178 mg/dL (83-110); Lipase 26 U/L (8-78); Potassium 4.6 mmol/L (3.5-5.1); Protein, Total 6.9 g/dL (5.8-8.1); Sodium 138 mmol/L (136-145)
[2022-05-01 21:21] LABS: Acetaminophen Less than 10.0 mcg/mL (10.0-30.0); Alcohol Less than 10 mg/dL (Less than 10); CK (CPK) 14 U/L (30-200); Salicylate Less than 8.0 mg/dL (15.0-30.0)
[2022-05-01 21:28] LABS: Actual Bicarbonate (HCO3a) 23.4 mEq/L (22-28); Analyzer IN Cardio ER; Base Excess (BEa) -1.7 mEq/L (-2.0 to +3.0); Calcium, Ionized (arterial) 1.12 mmol/L (1.12-1.30); Carboxyhemoglobin (COHb) 0.3 gm% (0.0-3.0); O2 Tension (PaO2), arterial 101.3 mmHg (> 60.0); Potassium - ABG Lab 4.28 mmol/L (3.70-5.30); pH, Arterial 7.37 (7.35-7.45)
[2022-05-01 21:30] LABS: Puncture Site RRA
[2022-05-01 21:39] LABS: Bilirubin Negative (Negative); Blood, Urine Trace (Negative); Clarity Turbid (Clear); Glucose, Urine (Dipstick) Normal (Negative); Ketone, Urine Negative (Negative); Leukocyte 500 Leu/uL (Negative); Nitrite Negative (Negative); Protein, Urine (Dipstick) 200 mg/dL (Neg-Trace); Specific Gravity, Urine 1.019 (1.002-1.036); Squamous Epithelial 0-3 HPF (0-3); Urobilinogen Normal mg/dL (Less than 2); WBC/HPF Greater than 50 HPF (0-3); pH, Urine 6.5 (5.0-9.0)
[2022-05-01 21:41] LABS: Amphetamine Not Detected (NotDetected); Barbiturates Screen Not Detected (NotDetected); Benzodiazepine Screen Not Detected (NotDetected); Cocaine Metabolite Screen Not Detected (NotDetected); Methadone Not Detected (NotDetected); Methamphetamine Not Detected (NotDetected); Opiate Screen Detected (NotDetected); Oxycodone Screen Not Detected (NotDetected); Phencyclidine (PCP) Not Detected (NotDetected); THC/Cannabinoid Screen Not Detected (NotDetected); Tricyclic Screen Not Detected (NotDetected)
[2022-05-01 21:42] LABS: CKMB 2.5 ng/mL (0-6.6)
[2022-05-01 21:46] LABS: Bacteria/HPF 1+ HPF (None Seen)
[2022-05-01 21:48] LABS: Renal Epithelial 0-3 HPF (None Seen); Yeast-Budding 3+ HPF (None Seen)
[2022-05-01 22:08] LABS: SARS-CoV-2 NAA Rapid Test Not Detected (NotDetected)
[2022-05-01] MEDS ORDERED: Cefepime 2 GM VIAL ONE (22:15)
[2022-05-01] MEDS ORDERED: Vancomycin 1 GM/200 ML BAG ONE (23:34)
[2022-05-02] MEDS ORDERED: Ondansetron PF 4 MG/2 ML Vial IVP PRN (00:59)
[2022-05-02 01:22] LABS: Troponin I 0.022 ng/mL (< 0.028)
[2022-05-02 02:52] VITALS: BMI 23.0
[2022-05-02] MEDS ORDERED: HumaLOG 300 UNITS/3 ML VIAL SC PRN (07:06)
[2022-05-02] MEDS ORDERED: Dextrose 50% Abboject 50 ML SYRINGE SLOW IVP PRN (07:06)
[2022-05-02] MEDS ORDERED: Dextrose 5% in Water 1,000 ML IV PRN (07:06)
[2022-05-02 09:19] LABS: #Eosinphils 0.4 thou/uL (0.0-0.7); #Lymphocytes 2.6 thou/uL (1.20-3.40); #Monocytes 1.2 thou/uL (0.11-0.59); #Neutrophils 10.4 thou/uL (1.40-6.50); %Basophils 0.2 % (0.0-1.0); %Eosinophils 2.8 % (0.0-10.0); %Lymphocytes 17.6 % (21.0-51.0); %Monocytes 8.4 % (0.0-10.0); %Neutrophils 71.1 % (42.0-75.0); Hemoglobin 10.8 g/dL (14.0-18.0); Mean Corpuscular HGB CONC 32.3 g/dL (32.0-36.0); Mean Corpuscular Hemoglobin 29.3 pg (27.0-31.0); Mean Corpuscular Volume 90.9 fL (78.0-98.0); Mean Platelet Volume 6.4 fL (7.4-10.4); Platelet Count 300 thou/uL (130-400); RBC Distribution Width 14.2 % (11.5-14.5); Red Blood Cell (RBC) Count 3.67 mill/uL (4.70-6.10); White Blood Cell (WBC) Count 14.6 thou/uL (4.8-10.8)
[2022-05-02 09:39] LABS: Anion Gap 12 mmol/L (10-20); BUN (Urea Nitrogen) 28 mg/dL (8.4-25.7); Calc. Creatinine Clearance 58 mL/min (70-130); Calcium 7.8 mg/dL (7.8-10.44); Carbon Dioxide 22 mmol/L (23-31); Chloride 109 mmol/L (98-107); Estimated GFR 85; Glucose 81 mg/dL (83-110); Potassium 4.4 mmol/L (3.5-5.1); Sodium 139 mmol/L (136-145)
[2022-05-02 09:46] LABS: Troponin I 0.026 ng/mL (< 0.028)
[2022-05-02] MEDS: cefTRIAXone\\ROCEPHIN 1 GM in Sodium Chloride 0.9% 100 ML IVPB SCH (21:05)
[2022-05-02] MEDS: Acetaminophen 325 MG TAB PO PRN (21:06)
[2022-05-02] MEDS ORDERED: Bisacodyl 10 MG SUPP PR PRN (22:14)
[2022-05-02] MEDS ORDERED: Polyethylene Glycol 3350 17 GM Packet PO PRN (22:14)
[2022-05-03 05:15] LABS: #Eosinphils 0.2 thou/uL (0.0-0.7); #Lymphocytes 1.4 thou/uL (1.20-3.40); #Monocytes 0.7 thou/uL (0.11-0.59); #Neutrophils 5.8 thou/uL (1.40-6.50); %Basophils 0.1 % (0.0-1.0); %Lymphocytes 16.7 % (21.0-51.0); %Monocytes 8.9 % (0.0-10.0); %Neutrophils 71.3 % (42.0-75.0); Hemoglobin 9.5 g/dL (14.0-18.0); Mean Corpuscular HGB CONC 32.8 g/dL (32.0-36.0); Mean Corpuscular Hemoglobin 30.1 pg (27.0-31.0); Mean Corpuscular Volume 91.9 fL (78.0-98.0); Mean Platelet Volume 7.2 fL (7.4-10.4); Platelet Count 230 thou/uL (130-400); RBC Distribution Width 13.7 % (11.5-14.5); Red Blood Cell (RBC) Count 3.14 mill/uL (4.70-6.10); White Blood Cell (WBC) Count 8.1 thou/uL (4.8-10.8)
[2022-05-03 05:34] LABS: Anion Gap 12 mmol/L (10-20); BUN (Urea Nitrogen) 25 mg/dL (8.4-25.7); Calc. Creatinine Clearance 56 mL/min (70-130); Calcium 7.9 mg/dL (7.8-10.44); Carbon Dioxide 21 mmol/L (23-31); Chloride 109 mmol/L (98-107); Estimated GFR 84; Glucose 117 mg/dL (83-110); Potassium 4.1 mmol/L (3.5-5.1); Sodium 138 mmol/L (136-145)
[2022-05-03] MEDS ORDERED: hydrALAZINE 20 MG/ML VIAL SLOW IVP PRN (08:26)
[2022-05-03] MEDS ORDERED: Docusate 100 MG CAP PO PRN ×2 (08:57→15:15)
[2022-05-03] MEDS ORDERED: Fleet Enema 133 ML BOT PR PRN ×2 (09:30→15:15)
[2022-05-03] MEDS: Amlodipine 5 MG TAB PO SCH (10:02)
[2022-05-03] MEDS: Metoprolol Tartrate 50 MG TAB PO SCH ×2 (10:02→22:05)
[2022-05-03] MEDS: Apixaban 2.5 MG TAB PO SCH ×2 (10:02→22:04)
[2022-05-03] MEDS: Famotidine 20 MG TAB PO SCH ×2 (10:02→22:04)
[2022-05-03] MEDS: Ezetimibe 10 MG TAB PO SCH (10:03)
[2022-05-03] MEDS: Valproate Sodium 250 mg/5 ml UD Cup PO SCH ×3 (10:03→22:15)
[2022-05-03] MEDS: Fluconazole 100 MG TAB PO SCH (10:03)
[2022-05-03] MEDS: busPIRone HCl 10 MG TAB PO SCH ×2 (16:25→22:04)
[2022-05-03] MEDS: hydrALAZINE 25 MG TAB PO SCH ×2 (16:26→22:04)
[2022-05-03] MEDS: cefTRIAXone\\ROCEPHIN 1 GM in Sodium Chloride 0.9% 100 ML IVPB SCH (22:02)
[2022-05-03] MEDS: Mirtazapine 15 MG TAB PO SCH (22:03)
[2022-05-03] MEDS: Atorvastatin Calcium 10 MG TAB PO SCH (22:03)
[2022-05-03] MEDS: OLANZapine 2.5 MG TAB PO SCH (22:05)
[2022-05-04 05:18] LABS: #Eosinphils 0.4 thou/uL (0.0-0.7); #Lymphocytes 1.9 thou/uL (1.20-3.40); #Monocytes 0.9 thou/uL (0.11-0.59); #Neutrophils 7.4 thou/uL (1.40-6.50); %Basophils 0.1 % (0.0-1.0); %Eosinophils 3.6 % (0.0-10.0); %Lymphocytes 17.6 % (21.0-51.0); %Monocytes 8.6 % (0.0-10.0); %Neutrophils 70.2 % (42.0-75.0); Mean Corpuscular HGB CONC 33.3 g/dL (32.0-36.0); Mean Corpuscular Hemoglobin 29.9 pg (27.0-31.0); Mean Corpuscular Volume 90.1 fL (78.0-98.0); Mean Platelet Volume 6.8 fL (7.4-10.4); Platelet Count 283 thou/uL (130-400); RBC Distribution Width 13.8 % (11.5-14.5); Red Blood Cell (RBC) Count 3.35 mill/uL (4.70-6.10); White Blood Cell (WBC) Count 10.6 thou/uL (4.8-10.8)
[2022-05-04 05:36] LABS: Anion Gap 13 mmol/L (10-20); BUN (Urea Nitrogen) 29 mg/dL (8.4-25.7); Calc. Creatinine Clearance 41 mL/min (70-130); Calcium 8.1 mg/dL (7.8-10.44); Carbon Dioxide 22 mmol/L (23-31); Chloride 108 mmol/L (98-107); Estimated GFR 59; Glucose 119 mg/dL (83-110); Potassium 4.2 mmol/L (3.5-5.1); Sodium 139 mmol/L (136-145)
[2022-05-04] MEDS: Ezetimibe 10 MG TAB PO SCH (09:58)
[2022-05-04] MEDS: Valproate Sodium 250 mg/5 ml UD Cup PO SCH ×2 (09:58→21:14)
[2022-05-04] MEDS: hydrALAZINE 25 MG TAB PO SCH ×3 (09:59→21:12)
[2022-05-04] MEDS: Multivit, Therapeutic 1 TAB PO SCH (09:59)
[2022-05-04] MEDS: Fluconazole 100 MG TAB PO SCH (09:59)
[2022-05-04] MEDS: busPIRone HCl 10 MG TAB PO SCH ×3 (10:00→21:13)
[2022-05-04] MEDS: Amlodipine 5 MG TAB PO SCH (10:01)
[2022-05-04] MEDS: Apixaban 2.5 MG TAB PO SCH ×2 (10:01→21:13)
[2022-05-04] MEDS: Famotidine 20 MG TAB PO SCH ×2 (10:01→21:13)
[2022-05-04] MEDS: Acetaminophen 325 MG TAB PO PRN (10:02)
[2022-05-04] MEDS: Metoprolol Tartrate 50 MG TAB PO SCH ×2 (10:02→21:13)
[2022-05-04] MEDS: HumaLOG 300 UNITS/3 ML VIAL SC PRN ×2 (12:31→18:40)
[2022-05-04] MEDS: Mirtazapine 15 MG TAB PO SCH (21:13)
[2022-05-04] MEDS: Atorvastatin Calcium 10 MG TAB PO SCH (21:13)
[2022-05-04] MEDS: OLANZapine 2.5 MG TAB PO SCH (21:14)
[2022-05-05] MEDS: Valproate Sodium 250 mg/5 ml UD Cup PO SCH (09:19)
[2022-05-05] MEDS: Multivit, Therapeutic 1 TAB PO SCH (09:20)
[2022-05-05] MEDS: hydrALAZINE 25 MG TAB PO SCH ×2 (09:20→15:16)
[2022-05-05] MEDS: Famotidine 20 MG TAB PO SCH (09:21)
[2022-05-05] MEDS: Metoprolol Tartrate 50 MG TAB PO SCH (09:21)
[2022-05-05] MEDS: Ezetimibe 10 MG TAB PO SCH (09:21)
[2022-05-05] MEDS: Fluconazole 100 MG TAB PO SCH (09:22)
[2022-05-05] MEDS: busPIRone HCl 10 MG TAB PO SCH ×2 (09:22→15:16)
[2022-05-05] MEDS: Apixaban 2.5 MG TAB PO SCH (09:23)
[2022-05-05] MEDS: Amlodipine 5 MG TAB PO SCH (09:23)
[2022-05-05 11:37] VITALS: BP 148/80; TEMP 97.3
== END 2022-05-05 15:25 | DRG 871 ==
LOC: ERS 20:13 → NEURO 05-02 00:13
PROVIDERS: ADMIT Hospitalist; ATTEND Hospitalist
DX: A41.9 Sepsis, unspecified organism (principal); J96.01 Acute respiratory failure with hypoxia; C34.11 Malignant neoplasm of upper lobe, right bronchus or lung; I50.32 Chronic diastolic (congestive) heart failure; I69.354 Hemiplegia and hemiparesis following cerebral infarction affecting left non-dominant side; I13.0 Hypertensive heart and chronic kidney disease with heart failure and stage 1 through stage 4 chronic kidney disease, or unspecified chronic kidney disease; N17.9 Acute kidney failure, unspecified; E44.0 Moderate protein-calorie malnutrition; R64 Cachexia; C77.1 Secondary and unspecified malignant neoplasm of intrathoracic lymph nodes; B37.41 Candidal cystitis and urethritis; G93.49 Other encephalopathy; Z20.822 Contact with and (suspected) exposure to COVID-19; Z51.5 Encounter for palliative care; E78.5 Hyperlipidemia, unspecified; I48.91 Unspecified atrial fibrillation; I25.10 Atherosclerotic heart disease of native coronary artery without angina pectoris; J44.9 Chronic obstructive pulmonary disease, unspecified; K21.9 Gastro-esophageal reflux disease without esophagitis; N40.0 Benign prostatic hyperplasia without lower urinary tract symptoms; R91.8 Other nonspecific abnormal finding of lung field; N18.31 Chronic kidney disease, stage 3a; E11.22 Type 2 diabetes mellitus with diabetic chronic kidney disease; G30.9 Alzheimer's disease, unspecified; F02.80 Dementia in other diseases classified elsewhere, unspecified severity, without behavioral disturbance, psychotic disturbance, mood disturbance, and anxiety; R13.10 Dysphagia, unspecified; R59.0 Localized enlarged lymph nodes; Z79.899 Other long term (current) drug therapy; Z79.01 Long term (current) use of anticoagulants; Z79.4 Long term (current) use of insulin; Z95.0 Presence of cardiac pacemaker; Z95.5 Presence of coronary angioplasty implant and graft; Z87.891 Personal history of nicotine dependence; Z68.23 Body mass index [BMI] 23.0-23.9, adult
CPT/HCPCS: 36415; 36416; 36600; 51702; 70450; 71045; 71275; 80048; 80053; 80306; 80307; 81003; 81015; 82140; 82550; 82553; 82805; 83605; 83690; 83880; 84443; 84484; 85025; 87040; 87086; 93005; 94640; 96374; 96375; J0692; J0696; J1815; J1956; J3370; J3490; J7620; Q9967; U0002

== ENCOUNTER 2022-05-20 11:17 | Inpatient (IN) | payer MEDICARE, MEDICAID ==
[2022-05-20] MEDS ORDERED: Ondansetron PF 4 MG/2 ML Vial ONE (11:40)
[2022-05-20] MEDS ORDERED: Vancomycin 1 GM/200 ML BAG ONE (11:40)
[2022-05-20] MEDS ORDERED: Morphine 4 MG/ML VIAL ONE (11:40)
[2022-05-20 11:50] LABS: #Eosinphils 0.2 thou/uL (0.0-0.7); #Lymphocytes 1.8 thou/uL (1.20-3.40); #Monocytes 1.4 thou/uL (0.11-0.59); #Neutrophils 10.5 thou/uL (1.40-6.50); %Basophils 0.2 % (0.0-1.0); %Eosinophils 1.5 % (0.0-10.0); %Lymphocytes 12.5 % (21.0-51.0); %Monocytes 10.2 % (0.0-10.0); %Neutrophils 75.5 % (42.0-75.0); Hemoglobin 10.7 g/dL (14.0-18.0); Mean Corpuscular Hemoglobin 29.5 pg (27.0-31.0); Mean Corpuscular Volume 92.2 fL (78.0-98.0); Mean Platelet Volume 7.6 fL (7.4-10.4); Platelet Count 223 thou/uL (130-400); RBC Distribution Width 14.2 % (11.5-14.5); Red Blood Cell (RBC) Count 3.62 mill/uL (4.70-6.10)
[2022-05-20 12:21] LABS: ALT (SGPT) Less than 7 U/L (8-55); AST (SGOT) 10 U/L (5-34); Albumin 2.7 g/dL (3.4-4.8); Alkaline Phosphatase 89 U/L (40-110); Anion Gap 14 mmol/L (10-20); BUN (Urea Nitrogen) 39 mg/dL (8.4-25.7); Bilirubin, Total 0.3 mg/dL (0.2-1.2); CK (CPK) 14 U/L (30-200); Calc. Creatinine Clearance 0 mL/min (70-130); Calcium 8.3 mg/dL (7.8-10.44); Carbon Dioxide 22 mmol/L (23-31); Chloride 108 mmol/L (98-107); Estimated GFR 51; Globulin 4.8 g/dL (2.4-3.5); Glucose 177 mg/dL (83-110); Lipase 22 U/L (8-78); Magnesium 2.1 mg/dL (1.6-2.6); Potassium 4.7 mmol/L (3.5-5.1); Protein, Total 7.5 g/dL (5.8-8.1); Sodium 139 mmol/L (136-145)
[2022-05-20 12:24] LABS: SARS-CoV-2 NAA Rapid Test Not Detected (NotDetected)
[2022-05-20] MEDS ORDERED: Acetaminophen 325 MG TAB PO PRN (13:25)
[2022-05-20] MEDS ORDERED: Ondansetron ODT 4 MG TAB PO PRN (13:25)
[2022-05-20] MEDS ORDERED: Ondansetron PF 4 MG/2 ML Vial IVP PRN (13:25)
[2022-05-20] MEDS ORDERED: Acetaminophen 650 MG Suppository PR PRN (13:25)
[2022-05-20 13:43] LABS: Bacteria/HPF None Seen HPF (None Seen); Bilirubin Negative (Negative); Blood, Urine 3+ (Negative); Clarity Clear (Clear); Glucose, Urine (Dipstick) 30 mg/dL (Negative); Ketone, Urine Negative (Negative); Leukocyte 500 Leu/uL (Negative); Nitrite Negative (Negative); Protein, Urine (Dipstick) 100 mg/dL (Neg-Trace); RBC/HPF Greater than 50 HPF (0-3); Specific Gravity, Urine 1.013 (1.002-1.036); Squamous Epithelial 0-3 HPF (0-3); Urobilinogen Normal mg/dL (Less than 2); WBC/HPF 21-50 HPF (0-3)
[2022-05-20 14:44] LABS: Troponin I 0.026 ng/mL (< 0.028)
[2022-05-20] MEDS ORDERED: Cefepime 2 GM VIAL ONE (15:46)
[2022-05-20] MEDS ORDERED: Dronedarone HCl 400 MG TAB PO SCH (17:00)
[2022-05-20] MEDS: Cefepime 1 GM in Sodium Chloride 0.9% 100 ML IVPB SCH (17:51)
[2022-05-20 18:12] LABS: Troponin I 0.042 ng/mL (< 0.028)
[2022-05-20] MEDS: hydrALAZINE 20 MG/ML VIAL SLOW IVP PRN (18:21)
[2022-05-20] MEDS ORDERED: OLANZapine 2.5 MG TAB PO SCH (21:00)
[2022-05-20] MEDS: Apixaban 2.5 MG TAB PO SCH (22:24)
[2022-05-20] MEDS: Valproate Sodium 250 mg/5 ml UD Cup PO SCH (22:24)
[2022-05-20] MEDS: Famotidine 20 MG TAB PO SCH (22:25)
[2022-05-20] MEDS: Senokot S 8.6-50 MG TAB PO SCH (22:25)
[2022-05-21 02:07] VITALS: BMI 18.4
[2022-05-21] MEDS: Cefepime 1 GM in Sodium Chloride 0.9% 100 ML IVPB SCH ×2 (03:40→14:59)
[2022-05-21 04:07] LABS: #Lymphocytes 1.2 thou/uL (1.20-3.40); #Monocytes 1.2 thou/uL (0.11-0.59); #Neutrophils 9.7 thou/uL (1.40-6.50); %Basophils 0.1 % (0.0-1.0); %Eosinophils 0.4 % (0.0-10.0); %Lymphocytes 9.9 % (21.0-51.0); %Monocytes 9.8 % (0.0-10.0); %Neutrophils 79.9 % (42.0-75.0); Hemoglobin 9.4 g/dL (14.0-18.0); Mean Corpuscular HGB CONC 32.4 g/dL (32.0-36.0); Mean Corpuscular Hemoglobin 29.9 pg (27.0-31.0); Mean Corpuscular Volume 92.2 fL (78.0-98.0); Mean Platelet Volume 7.3 fL (7.4-10.4); Platelet Count 199 thou/uL (130-400); Red Blood Cell (RBC) Count 3.14 mill/uL (4.70-6.10); White Blood Cell (WBC) Count 12.1 thou/uL (4.8-10.8)
[2022-05-21 04:30] LABS: Anion Gap 11 mmol/L (10-20); BUN (Urea Nitrogen) 34 mg/dL (8.4-25.7); Calc. Creatinine Clearance 51 mL/min (70-130); Calcium 8.1 mg/dL (7.8-10.44); Carbon Dioxide 25 mmol/L (23-31); Chloride 108 mmol/L (98-107); Estimated GFR 82; Glucose 143 mg/dL (83-110); Potassium 4.5 mmol/L (3.5-5.1); Sodium 139 mmol/L (136-145)
[2022-05-21] MEDS: Albuterol Sulfate 1.25 MG/3 ML NEB NEB SCH ×3 (06:52→23:22)
[2022-05-21] MEDS ORDERED: Digoxin 0.125 MG TAB PO SCH (09:00)
[2022-05-21] MEDS ORDERED: hydrALAZINE 20 MG/ML VIAL SLOW IVP PRN (10:30)
[2022-05-21] MEDS ORDERED: Labetalol HCl 100 MG/20 ML VIAL SLOW IVP PRN (10:30)
[2022-05-21] MEDS ORDERED: Artificial Tear Sol 15 ML BOT EA EYE PRN (10:30)
[2022-05-21] MEDS ORDERED: Moisturizing Cream (Eucerin) 113 GM JAR TOP PRN (10:30)
[2022-05-21] MEDS: Vancomycin 1 GM in Premix Bag 1 BAG IVPB SCH (11:53)
[2022-05-21] MEDS: Apixaban 2.5 MG TAB PO SCH (15:07)
[2022-05-21] MEDS: Valproate Sodium 250 mg/5 ml UD Cup PO SCH ×2 (15:08→20:31)
[2022-05-21] MEDS: Famotidine 20 MG TAB PO SCH (15:08)
[2022-05-21] MEDS: Senokot S 8.6-50 MG TAB PO SCH (15:08)
[2022-05-21] MEDS ORDERED: Mineral Oil ENEMA PR SCH (16:15)
[2022-05-21] MEDS: hydrALAZINE 20 MG/ML VIAL SLOW IVP PRN (18:31)
[2022-05-21] MEDS: Dextrose 5%-Lactated Ringers 1,000 ML IV SCH (18:31)
[2022-05-21] MEDS ORDERED: Acetaminophen/Codeine 30-300mg Tablet PO SCH (20:15)
[2022-05-21] MEDS: Bisacodyl 10 MG SUPP PR PRN (20:31)
[2022-05-21] MEDS: Enoxaparin Sodium 60 MG/0.6 ML SYRINGE SC SCH (20:31)
[2022-05-21] MEDS ORDERED: Valproate Sodium 500 MG in Sodium Chloride 0.9% 100 ML IVPB SCH (21:00)
[2022-05-22] MEDS: Cefepime 1 GM in Sodium Chloride 0.9% 100 ML IVPB SCH ×2 (03:40→17:25)
[2022-05-22] MEDS: Dextrose 5%-Lactated Ringers 1,000 ML IV SCH ×2 (06:20→17:26)
[2022-05-22 06:37] LABS: #Eosinphils 0.2 thou/uL (0.0-0.7); #Lymphocytes 1.1 thou/uL (1.20-3.40); #Neutrophils 6.2 thou/uL (1.40-6.50); %Basophils 0.3 % (0.0-1.0); %Eosinophils 2.4 % (0.0-10.0); %Lymphocytes 12.8 % (21.0-51.0); %Monocytes 12.2 % (0.0-10.0); %Neutrophils 72.3 % (42.0-75.0); Hemoglobin 8.7 g/dL (14.0-18.0); Mean Corpuscular HGB CONC 32.4 g/dL (32.0-36.0); Mean Corpuscular Hemoglobin 29.9 pg (27.0-31.0); Mean Corpuscular Volume 92.3 fL (78.0-98.0); Mean Platelet Volume 7.5 fL (7.4-10.4); Platelet Count 191 thou/uL (130-400); RBC Distribution Width 13.8 % (11.5-14.5); White Blood Cell (WBC) Count 8.5 thou/uL (4.8-10.8)
[2022-05-22 06:59] LABS: Anion Gap 11 mmol/L (10-20); BUN (Urea Nitrogen) 37 mg/dL (8.4-25.7); Calc. Creatinine Clearance 50 mL/min (70-130); Carbon Dioxide 22 mmol/L (23-31); Chloride 107 mmol/L (98-107); Estimated GFR 81; Glucose 160 mg/dL (83-110); Sodium 136 mmol/L (136-145)
[2022-05-22] MEDS: Albuterol Sulfate 1.25 MG/3 ML NEB NEB SCH ×3 (07:05→22:34)
[2022-05-22] MEDS: OLANZapine ODT 5 MG TAB SL SCH (08:13)
[2022-05-22] MEDS: Bisacodyl 10 MG SUPP PR PRN (08:14)
[2022-05-22] MEDS: Enoxaparin Sodium 60 MG/0.6 ML SYRINGE SC SCH ×2 (08:14→21:39)
[2022-05-22] MEDS: Valproate Sodium 250 mg/5 ml UD Cup PO SCH ×2 (08:14→20:11)
[2022-05-22] MEDS: Vancomycin 1 GM in Premix Bag 1 BAG IVPB SCH (11:55)
[2022-05-22] MEDS ORDERED: Mineral Oil ENEMA PR SCH (15:45)
[2022-05-22] MEDS ORDERED: Polyethylene Glycol 3350 17 GM Packet PER TUBE SCH (19:45)
[2022-05-22] MEDS: Senokot S 8.6-50 MG TAB PO SCH (20:11)
[2022-05-23] MEDS: Cefepime 1 GM in Sodium Chloride 0.9% 100 ML IVPB SCH ×2 (03:40→16:03)
[2022-05-23] MEDS: Dextrose 5%-Lactated Ringers 1,000 ML IV SCH (03:40)
[2022-05-23 06:34] LABS: #Eosinphils 0.1 thou/uL (0.0-0.7); #Lymphocytes 0.8 thou/uL (1.20-3.40); #Monocytes 0.7 thou/uL (0.11-0.59); #Neutrophils 4.8 thou/uL (1.40-6.50); %Basophils 0.3 % (0.0-1.0); %Eosinophils 2.2 % (0.0-10.0); %Monocytes 10.3 % (0.0-10.0); %Neutrophils 74.3 % (42.0-75.0); Hemoglobin 8.7 g/dL (14.0-18.0); Mean Corpuscular HGB CONC 32.1 g/dL (32.0-36.0); Mean Corpuscular Hemoglobin 29.6 pg (27.0-31.0); Mean Corpuscular Volume 92.2 fL (78.0-98.0); Mean Platelet Volume 7.3 fL (7.4-10.4); Platelet Count 182 thou/uL (130-400); RBC Distribution Width 13.9 % (11.5-14.5); Red Blood Cell (RBC) Count 2.94 mill/uL (4.70-6.10); White Blood Cell (WBC) Count 6.4 thou/uL (4.8-10.8)
[2022-05-23 06:55] LABS: Anion Gap 12 mmol/L (10-20); BUN (Urea Nitrogen) 28 mg/dL (8.4-25.7); Calc. Creatinine Clearance 39 mL/min (70-130); Carbon Dioxide 22 mmol/L (23-31); Chloride 110 mmol/L (98-107); Estimated GFR 59; Glucose 180 mg/dL (83-110); Sodium 140 mmol/L (136-145)
[2022-05-23] MEDS: Albuterol Sulfate 1.25 MG/3 ML NEB NEB SCH ×3 (07:10→23:48)
[2022-05-23] MEDS: OLANZapine ODT 5 MG TAB SL SCH (08:40)
[2022-05-23] MEDS: Valproate Sodium 250 mg/5 ml UD Cup PO SCH ×3 (08:41→22:23)
[2022-05-23] MEDS: Enoxaparin Sodium 60 MG/0.6 ML SYRINGE SC SCH ×2 (08:41→21:39)
[2022-05-23] MEDS: Polyethylene Glycol 3350 17 GM Packet PER TUBE SCH (08:41)
[2022-05-23] MEDS: Senokot S 8.6-50 MG TAB PO SCH ×3 (08:42→22:23)
[2022-05-23] MEDS ORDERED: GoLYTELY 4,000 ml Bottle PO SCH (15:00)
[2022-05-23] MEDS ORDERED: Acetaminophen 325 MG TAB PO PRN (21:35)
[2022-05-23] MEDS: Amoxicillin/Potassium Clav 875 MG TAB PO SCH ×2 (21:39→22:23)
[2022-05-24 06:28] LABS: #Eosinphils 0.2 thou/uL (0.0-0.7); #Lymphocytes 1.2 thou/uL (1.20-3.40); #Monocytes 0.8 thou/uL (0.11-0.59); #Neutrophils 5.7 thou/uL (1.40-6.50); %Eosinophils 2.8 % (0.0-10.0); %Lymphocytes 15.5 % (21.0-51.0); %Monocytes 9.8 % (0.0-10.0); %Neutrophils 71.9 % (42.0-75.0); Hemoglobin 9.9 g/dL (14.0-18.0); Mean Corpuscular HGB CONC 32.4 g/dL (32.0-36.0); Mean Corpuscular Hemoglobin 29.8 pg (27.0-31.0); Mean Corpuscular Volume 91.8 fL (78.0-98.0); Mean Platelet Volume 7.7 fL (7.4-10.4); Platelet Count 221 thou/uL (130-400); RBC Distribution Width 13.9 % (11.5-14.5); Red Blood Cell (RBC) Count 3.33 mill/uL (4.70-6.10)
[2022-05-24 06:43] LABS: Anion Gap 13 mmol/L (10-20); BUN (Urea Nitrogen) 19 mg/dL (8.4-25.7); Calc. Creatinine Clearance 64 mL/min (70-130); Calcium 8.2 mg/dL (7.8-10.44); Carbon Dioxide 23 mmol/L (23-31); Chloride 107 mmol/L (98-107); Estimated GFR 89; Glucose 127 mg/dL (83-110); Potassium 3.5 mmol/L (3.5-5.1); Sodium 139 mmol/L (136-145)
[2022-05-24] MEDS: Albuterol Sulfate 1.25 MG/3 ML NEB NEB SCH ×2 (07:29→14:08)
[2022-05-24 08:12] LABS: Glucose 117 mg/dL (83-110)
[2022-05-24] MEDS: OLANZapine ODT 5 MG TAB SL SCH (09:52)
[2022-05-24] MEDS: Polyethylene Glycol 3350 17 GM Packet PER TUBE SCH (09:52)
[2022-05-24] MEDS: Senokot S 8.6-50 MG TAB PO SCH (09:52)
[2022-05-24] MEDS: Amoxicillin/Potassium Clav 875 MG TAB PO SCH (09:52)
[2022-05-24] MEDS: Valproate Sodium 250 mg/5 ml UD Cup PO SCH (09:53)
[2022-05-24] MEDS: Enoxaparin Sodium 60 MG/0.6 ML SYRINGE SC SCH (09:53)
[2022-05-24 12:23] LABS: Glucose 95 mg/dL (83-110)
[2022-05-24 15:41] VITALS: BP 167/80; TEMP 98.2
== END 2022-05-24 15:39 | DRG 871 ==
LOC: ERS 11:17 → 2NO 13:25 → T4-A 05-21 18:23
PROVIDERS: ADMIT Internal Medicine; ATTEND Internal Medicine
DX: A41.9 Sepsis, unspecified organism (principal); E43 Unspecified severe protein-calorie malnutrition; G93.41 Metabolic encephalopathy; J18.9 Pneumonia, unspecified organism; J69.0 Pneumonitis due to inhalation of food and vomit; J96.01 Acute respiratory failure with hypoxia; I69.354 Hemiplegia and hemiparesis following cerebral infarction affecting left non-dominant side; I13.0 Hypertensive heart and chronic kidney disease with heart failure and stage 1 through stage 4 chronic kidney disease, or unspecified chronic kidney disease; C34.11 Malignant neoplasm of upper lobe, right bronchus or lung; J44.0 Chronic obstructive pulmonary disease with (acute) lower respiratory infection; N39.0 Urinary tract infection, site not specified; I50.42 Chronic combined systolic (congestive) and diastolic (congestive) heart failure; R64 Cachexia; Z68.1 Body mass index [BMI] 19.9 or less, adult; Z66 Do not resuscitate; Z20.822 Contact with and (suspected) exposure to COVID-19; I48.91 Unspecified atrial fibrillation; K21.9 Gastro-esophageal reflux disease without esophagitis; N40.0 Benign prostatic hyperplasia without lower urinary tract symptoms; L89.622 Pressure ulcer of left heel, stage 2; L89.612 Pressure ulcer of right heel, stage 2; I25.10 Atherosclerotic heart disease of native coronary artery without angina pectoris; E78.5 Hyperlipidemia, unspecified; E11.22 Type 2 diabetes mellitus with diabetic chronic kidney disease; N18.30 Chronic kidney disease, stage 3 unspecified; F32.A Depression, unspecified; F41.9 Anxiety disorder, unspecified; G30.9 Alzheimer's disease, unspecified; K56.41 Fecal impaction; R13.10 Dysphagia, unspecified; K57.90 Diverticulosis of intestine, part unspecified, without perforation or abscess without bleeding; K80.20 Calculus of gallbladder without cholecystitis without obstruction; F02.80 Dementia in other diseases classified elsewhere, unspecified severity, without behavioral disturbance, psychotic disturbance, mood disturbance, and anxiety; Z95.1 Presence of aortocoronary bypass graft; Z91.19 Patient's noncompliance with other medical treatment and regimen; Z95.0 Presence of cardiac pacemaker; Z79.01 Long term (current) use of anticoagulants; Z79.899 Other long term (current) drug therapy; Z95.5 Presence of coronary angioplasty implant and graft; Z87.891 Personal history of nicotine dependence; Z51.5 Encounter for palliative care; Z92.89 Personal history of other medical treatment; Z74.01 Bed confinement status
CPT/HCPCS: 36415; 36416; 51702; 71045; 74018; 74176; 80048; 80053; 80202; 81003; 81015; 82550; 82553; 83605; 83690; 83735; 83880; 84443; 84484; 85025; 87040; 87077; 87081; 87086; 87149; 87186; 87804; 93005; 94640; 96365; 96366; 96367; 96375; 97139; J0360; J0692; J1650; J2270; J2405; J3370; J3490; J7620; U0002

== ENCOUNTER 2022-06-17 21:29 | Inpatient (IN) | payer MEDICARE, MEDICAID ==
[2022-06-17 22:19] LABS: #Lymphocytes 0.9 thou/uL (1.20-3.40); #Monocytes 1.2 thou/uL (0.11-0.59); #Neutrophils 15.2 thou/uL (1.40-6.50); %Basophils 0.2 % (0.0-1.0); %Eosinophils 0.3 % (0.0-10.0); %Lymphocytes 5.1 % (21.0-51.0); %Monocytes 6.7 % (0.0-10.0); %Neutrophils 87.7 % (42.0-75.0); Hemoglobin 9.8 g/dL (14.0-18.0); Mean Corpuscular HGB CONC 31.3 g/dL (32.0-36.0); Mean Corpuscular Hemoglobin 28.8 pg (27.0-31.0); Mean Corpuscular Volume 91.8 fL (78.0-98.0); Mean Platelet Volume 6.9 fL (7.4-10.4); Platelet Count 244 thou/uL (130-400); RBC Distribution Width 14.2 % (11.5-14.5); Red Blood Cell (RBC) Count 3.42 mill/uL (4.70-6.10); White Blood Cell (WBC) Count 17.4 thou/uL (4.8-10.8)
[2022-06-17] MEDS ORDERED: Cefepime 2 GM VIAL ONE (22:29)
[2022-06-17] MEDS ORDERED: Vancomycin 1 GM/200 ML BAG ONE (22:30)
[2022-06-17] MEDS ORDERED: Clindamycin/D5W 900 mg/50 ml Premix Bag ONE (22:30)
[2022-06-17 22:36] LABS: Bilirubin Negative (Negative); Blood, Urine 2+ (Negative); Clarity Extra Turbid (Clear); Glucose, Urine (Dipstick) 70 mg/dL (Negative); Ketone, Urine Negative (Negative); Leukocyte 500 Leu/uL (Negative); Nitrite Negative (Negative); Protein, Urine (Dipstick) 300 mg/dL (Neg-Trace); Specific Gravity, Urine 1.026 (1.002-1.036)
[2022-06-17 22:37] LABS: Bacteria/HPF 4+ HPF (None Seen); Squamous Epithelial 0-3 HPF (0-3); WBC/HPF Greater than 50 HPF (0-3); Yeast-Budding 2+ HPF (None Seen)
[2022-06-17 22:42] LABS: ALT (SGPT) Less than 7 U/L (8-55); AST (SGOT) 8 U/L (5-34); Albumin 2.2 g/dL (3.4-4.8); Alkaline Phosphatase 83 U/L (40-110); Anion Gap 12 mmol/L (10-20); BUN (Urea Nitrogen) 34 mg/dL (8.4-25.7); Bilirubin, Total 0.4 mg/dL (0.2-1.2); Calc. Creatinine Clearance 0 mL/min (70-130); Carbon Dioxide 24 mmol/L (23-31); Chloride 104 mmol/L (98-107); Estimated GFR 84; Globulin 4.8 g/dL (2.4-3.5); Glucose 234 mg/dL (83-110); Potassium 3.4 mmol/L (3.5-5.1); Sodium 137 mmol/L (136-145)
[2022-06-17 23:08] LABS: SARS-CoV-2 NAA Rapid Test Not Detected (NotDetected)
[2022-06-18] MEDS ORDERED: Acetaminophen 650 MG Suppository PR PRN (00:03)
[2022-06-18] MEDS ORDERED: Ondansetron PF 4 MG/2 ML Vial IVP PRN (00:03)
[2022-06-18] MEDS ORDERED: Ondansetron ODT 4 MG TAB PO PRN (00:03)
[2022-06-18] MEDS ORDERED: Acetaminophen 325 MG TAB PO PRN (00:03)
[2022-06-18] MEDS ORDERED: HumaLOG 300 UNITS/3 ML VIAL SC PRN ×2 (02:52)
[2022-06-18] MEDS ORDERED: Dextrose 50% Abboject 50 ML SYRINGE SLOW IVP PRN (02:52)
[2022-06-18] MEDS ORDERED: Dextrose 5% in Water 1,000 ML IV PRN (02:52)
[2022-06-18] MEDS: Morphine 4 MG/ML VIAL SLOW IVP PRN ×3 (03:03→22:27)
[2022-06-18] MEDS ORDERED: FLU VACC QS2022-23(65YR UP)/PF 240 MCG/0.7 ML SYRINGE IM ONE (09:00)
[2022-06-18] MEDS ORDERED: VANCOMYCIN 1.25 GM/250 ML BAG 1.25 GM in Premix Bag 1 BAG IVPB SCH (09:00)
[2022-06-18 09:19] LABS: Anion Gap 11 mmol/L (10-20); BUN (Urea Nitrogen) 28 mg/dL (8.4-25.7); Calc. Creatinine Clearance 65 mL/min (70-130); Carbon Dioxide 24 mmol/L (23-31); Chloride 106 mmol/L (98-107); Estimated GFR 89; Glucose 117 mg/dL (83-110); Potassium 3.4 mmol/L (3.5-5.1); Sodium 138 mmol/L (136-145)
[2022-06-18 09:22] LABS: #Lymphocytes 1.1 thou/uL (1.20-3.40); #Monocytes 1.2 thou/uL (0.11-0.59); #Neutrophils 17.1 thou/uL (1.40-6.50); %Eosinophils 0.2 % (0.0-10.0); %Lymphocytes 5.5 % (21.0-51.0); %Monocytes 6.2 % (0.0-10.0); Hemoglobin 9.8 g/dL (14.0-18.0); Mean Corpuscular HGB CONC 31.1 g/dL (32.0-36.0); Mean Corpuscular Hemoglobin 28.6 pg (27.0-31.0); Mean Platelet Volume 7.1 fL (7.4-10.4); Platelet Count 237 thou/uL (130-400); RBC Distribution Width 14.3 % (11.5-14.5); Red Blood Cell (RBC) Count 3.41 mill/uL (4.70-6.10); White Blood Cell (WBC) Count 19.4 thou/uL (4.8-10.8)
[2022-06-18] MEDS: Enoxaparin Sodium 40 MG/0.4 ML SYRINGE SC SCH (10:58)
[2022-06-18] MEDS: Cefepime 2 GM in Sodium Chloride 0.9% 100 ML IVPB SCH ×2 (10:58→21:23)
[2022-06-18] MEDS: Potassium Chloride 20 MEQ in Premix Bag 1 BAG IVPB SCH ×3 (11:48→16:14)
[2022-06-18 16:24] VITALS: BMI 21.6
[2022-06-18] MEDS: Vancomycin HCl 750 MG in Sodium Chloride 0.9% 250 ML 250 ML IVPB SCH (18:14)
[2022-06-18] MEDS ORDERED: D5 0.9% NS w/ 20 mEq KCl 1,000 ML IV SCH (21:00)
[2022-06-18] MEDS: Labetalol HCl 100 MG/20 ML VIAL SLOW IVP PRN (21:29)
[2022-06-19] MEDS ORDERED: OLANZapine 10 MG VIAL IM SCH (02:30)
[2022-06-19] MEDS: Labetalol HCl 100 MG/20 ML VIAL SLOW IVP PRN (04:01)
[2022-06-19 05:27] LABS: #Lymphocytes 0.6 thou/uL (1.20-3.40); #Monocytes 0.7 thou/uL (0.11-0.59); #Neutrophils 11.8 thou/uL (1.40-6.50); %Basophils 0.1 % (0.0-1.0); %Eosinophils 0.2 % (0.0-10.0); %Lymphocytes 4.2 % (21.0-51.0); %Monocytes 5.5 % (0.0-10.0); Hemoglobin 8.9 g/dL (14.0-18.0); Mean Corpuscular Hemoglobin 28.7 pg (27.0-31.0); Mean Corpuscular Volume 92.5 fL (78.0-98.0); Mean Platelet Volume 7.5 fL (7.4-10.4); Platelet Count 224 thou/uL (130-400); RBC Distribution Width 14.4 % (11.5-14.5); Red Blood Cell (RBC) Count 3.09 mill/uL (4.70-6.10); White Blood Cell (WBC) Count 13.1 thou/uL (4.8-10.8)
[2022-06-19 05:44] LABS: ALT (SGPT) Less than 7 U/L (8-55); AST (SGOT) 9 U/L (5-34); Alkaline Phosphatase 76 U/L (40-110); Anion Gap 12 mmol/L (10-20); BUN (Urea Nitrogen) 26 mg/dL (8.4-25.7); Bilirubin, Total 0.4 mg/dL (0.2-1.2); Calc. Creatinine Clearance 70 mL/min (70-130); Calcium 8.2 mg/dL (7.8-10.44); Carbon Dioxide 21 mmol/L (23-31); Chloride 111 mmol/L (98-107); Estimated GFR 91; Globulin 4.2 g/dL (2.4-3.5); Glucose 137 mg/dL (83-110); Potassium 4.2 mmol/L (3.5-5.1); Protein, Total 6.2 g/dL (5.8-8.1); Sodium 140 mmol/L (136-145)
[2022-06-19] MEDS: Vancomycin HCl 750 MG in Sodium Chloride 0.9% 250 ML 250 ML IVPB SCH ×2 (06:02→21:53)
[2022-06-19] MEDS ORDERED: D5 1/2 NS w/10 mEq KCl 1,000 ML/1,000 ML BAG IV SCH (09:30)
[2022-06-19] MEDS: Enoxaparin Sodium 40 MG/0.4 ML SYRINGE SC SCH (10:02)
[2022-06-19] MEDS: Cefepime 2 GM in Sodium Chloride 0.9% 100 ML IVPB SCH (10:03)
[2022-06-19] MEDS ORDERED: Scopolamine 1.5 mg/72 hour Patch TD SCH (18:30)
[2022-06-19] MEDS: Ampicillin/Sulbactam 1.5 GM in Sodium Chloride 0.9% 100 ML IVPB SCH (20:59)
[2022-06-19] MEDS: busPIRone HCl 10 MG TAB PO SCH (21:45)
[2022-06-19] MEDS: Famotidine 20 MG TAB PO SCH (21:45)
[2022-06-19] MEDS: OLANZapine 2.5 MG TAB PO SCH (21:46)
[2022-06-19] MEDS: Valproate Sodium 250 mg/5 ml UD Cup PO SCH (21:46)
[2022-06-20] MEDS: Labetalol HCl 100 MG/20 ML VIAL SLOW IVP PRN ×3 (00:05→09:45)
[2022-06-20] MEDS: Ampicillin/Sulbactam 1.5 GM in Sodium Chloride 0.9% 100 ML IVPB SCH ×4 (00:59→18:28)
[2022-06-20] MEDS: Morphine 4 MG/ML VIAL SLOW IVP PRN (04:24)
[2022-06-20 06:10] LABS: Vancomycin, Trough 19.7 ug/mL
[2022-06-20] MEDS: Vancomycin HCl 750 MG in Sodium Chloride 0.9% 250 ML 250 ML IVPB SCH (07:48)
[2022-06-20] MEDS ORDERED: Acetaminophen/Codeine 12.5 ML UDCUP PO PRN (08:21)
[2022-06-20] MEDS ORDERED: NIFEdipine XL 60 MG TAB PO SCH (09:00)
[2022-06-20] MEDS ORDERED: Carvedilol 6.25 MG TAB PO SCH (09:30)
[2022-06-20] MEDS: Enoxaparin Sodium 40 MG/0.4 ML SYRINGE SC SCH (09:46)
[2022-06-20] MEDS: busPIRone HCl 10 MG TAB PO SCH ×3 (09:46→22:33)
[2022-06-20] MEDS: Polyethylene Glycol 3350 17 GM Packet PO SCH (09:47)
[2022-06-20] MEDS: Digoxin 0.125 MG TAB PO SCH (09:47)
[2022-06-20] MEDS: Famotidine 20 MG TAB PO SCH ×2 (09:47→22:30)
[2022-06-20] MEDS: Valproate Sodium 250 mg/5 ml UD Cup PO SCH ×3 (09:48→22:30)
[2022-06-20] MEDS: Carvedilol 6.25 MG TAB PO SCH (16:04)
[2022-06-20] MEDS: OLANZapine 2.5 MG TAB PO SCH (22:30)
[2022-06-21] MEDS: Ampicillin/Sulbactam 1.5 GM in Sodium Chloride 0.9% 100 ML IVPB SCH ×3 (00:58→12:38)
[2022-06-21 08:50] VITALS: TEMP 98.4
[2022-06-21] MEDS: Carvedilol 6.25 MG TAB PO SCH (09:45)
[2022-06-21] MEDS: busPIRone HCl 10 MG TAB PO SCH (09:46)
[2022-06-21] MEDS: Famotidine 20 MG TAB PO SCH (09:46)
[2022-06-21] MEDS: Polyethylene Glycol 3350 17 GM Packet PO SCH (09:46)
[2022-06-21] MEDS: Digoxin 0.125 MG TAB PO SCH (09:46)
[2022-06-21] MEDS: Enoxaparin Sodium 40 MG/0.4 ML SYRINGE SC SCH (09:46)
[2022-06-21] MEDS: Valproate Sodium 250 mg/5 ml UD Cup PO SCH (09:47)
[2022-06-21] MEDS ORDERED: Amlodipine 5 MG TAB PO SCH ×2 (10:30→10:45)
[2022-06-21 12:02] VITALS: BP 131/75
[2022-06-22] MEDS ORDERED: Amlodipine 5 MG TAB PO SCH (09:00)
== END 2022-06-21 13:10 | DRG 177 ==
LOC: ERS 21:29 → MSONC 23:23 → OBSVTOIN 06-18 10:24
PROVIDERS: ADMIT Internal Medicine; ATTEND Internal Medicine
DX: J69.0 Pneumonitis due to inhalation of food and vomit (principal); Z66 Do not resuscitate; Z20.822 Contact with and (suspected) exposure to COVID-19; Z51.5 Encounter for palliative care; J96.01 Acute respiratory failure with hypoxia; I69.354 Hemiplegia and hemiparesis following cerebral infarction affecting left non-dominant side; C34.90 Malignant neoplasm of unspecified part of unspecified bronchus or lung; G93.49 Other encephalopathy; E44.0 Moderate protein-calorie malnutrition; I69.391 Dysphagia following cerebral infarction; J44.9 Chronic obstructive pulmonary disease, unspecified; I48.91 Unspecified atrial fibrillation; N18.30 Chronic kidney disease, stage 3 unspecified; E11.22 Type 2 diabetes mellitus with diabetic chronic kidney disease; R82.71 Bacteriuria; E87.6 Hypokalemia; G30.9 Alzheimer's disease, unspecified; F02.80 Dementia in other diseases classified elsewhere, unspecified severity, without behavioral disturbance, psychotic disturbance, mood disturbance, and anxiety; Z68.21 Body mass index [BMI] 21.0-21.9, adult; Z79.899 Other long term (current) drug therapy; Z95.5 Presence of coronary angioplasty implant and graft; Z98.890 Other specified postprocedural states
CPT/HCPCS: 36415; 36416; 71045; 80048; 80053; 80164; 80202; 81003; 81015; 83880; 85025; 87077; 87086; 87186; 93005; 96365; 96368; 96375; 97139; G0378; J0295; J0692; J1650; J1815; J2270; J2358; J3370; J3480; J3490; J7050

== ENCOUNTER 2022-06-30 10:16 | Emergency (ER) | payer MEDICARE, MEDICAID | END 2022-06-30 10:21 | disposition E | LOC: ERS 10:16 | DX: I46.9 Cardiac arrest, cause unspecified (principal) | CPT/HCPCS: 99285 ==